=== PATIENT | male | born 1980 | race Caucasian/White ===

== ENCOUNTER 2020-09-09 16:36 | Outpatient (REF) | payer MEDICAID, SELFPAY | END 2020-09-09 16:37 | disposition home or self-care (01) | LOC: HO.LAB 16:36 | PROVIDERS: Visit Provider Internal Medicine | DX: Z20.828 Contact with and (suspected) exposure to other viral communicable diseases (principal) | CPT/HCPCS: C9803; U0003 ==

== ENCOUNTER → 2020-09-16 14:09 | Outpatient (BNVA) | payer MEDICAID, SELFPAY | PROVIDERS: Visit Provider Urology | DX: Z76.89 Persons encountering health services in other specified circumstances (principal) | CPT/HCPCS: 99212 ==

== ENCOUNTER → 2020-09-22 09:58 | Outpatient (BNVA) | payer MEDICAID, SELFPAY | PROVIDERS: Visit Provider Urology | DX: Z48.816 Encounter for surgical aftercare following surgery on the genitourinary system (principal) | CPT/HCPCS: 52000; 52310; 99212 ==

== ENCOUNTER 2025-04-24 16:22 | Outpatient (REF) | payer MEDICAID, SELFPAY ==
--- OUTSIDE RECORDS SUMMARY | 2025-04-24 16:24 | XMS_ITS | Encounter Summary ---
Author Organization [facility] Address [address] [place] [address] [address] [place] [address] Care Team Providers Care Compressed Gas Tester Name Role Phone Jahaira Bailey MD Primary Care Provide r Reason for Visit * Reason Comments Med Refill Encounter Details Date Type Department Care Team (Late st Contact Info) Description 01/20/2023 Refill [facility] [address] [place] [phone] Sammy Vyas MD [address] [place] [phone] Uncomplicated opioid dependence (CMS/[facility]) Social History Tobacco Use Types Packs/Day Years Used Date Smoking Tobacco: Every Day Cigarettes Smokeless Tobacco: Never Alcohol Use Standard Drinks/Week Comments Not Currently 0 (1 standard drink = 0.6 oz pur e alcohol) Sex and Gender Information Value Date Recorded Sex Assigned at Male 09/04/2022 10:19 AM EDT Legal Sex Male 10:19 AM EDT Gender Identity Male 09/04/2022 10:19 AM EDT Sexual Orientation Straight 09/04/2022 10 :19 AM EDT documented as of this encounter Plan of Treatment Upcoming Encounters Date Type Department Care Team (Late Contact Info) Description 04/28/2025 11:00 AM EDT Office Visit [facility] [address] [place] [address] [phone] 05/19/2025 9:30 AM EDT Clinical Support [facility] [address] [place] [phone] Enko, Dee, RN documented as of this encounter Visit Diagnoses Diagnosis Uncomplicated opioid dependence (CMS/HCC) documented in this encounter Care Teams Compressed Gas Tester Relationship Specialty Start Date End Date Jahaira Bailey MD [address] [place] [address] PCP - General Family Medicine 10/08/19 documented as of this encounter
== END 2025-04-24 16:23 | disposition home or self-care (01) ==
LOC: HO.HHCLNP 16:22
PROVIDERS: Visit Provider Family Medicine
DX: L02.211 Cutaneous abscess of abdominal wall (principal)
CPT/HCPCS: 87070; 87077; 87186; 87205

== ENCOUNTER 2025-04-28 13:04 | Outpatient (AMB) | payer MEDICAID, SELFPAY ==
--- NOTE | 2025-04-28 13:16 | MHC.OFFVIS ---
Vital Signs 04/28/25 13:20 Height 5 ft 2 in Weight 159 lb BMI 29.1 BP 125/74 Blood Pressure Location Rt brachial Position Sitting Pulse 88 Intake Visit Reasons: Abdominal wall abscess~ Dr. Shafer Intake Note: Patient referred by Dr. Shafer for infected abscess on Rt lower abdomen. Started flaring 2wks ago. Currently taking Bactrim and Augmentin. Chemical Reclamation Equipment Operator Required: Yes Accompanied by: father Karri Allergies No Known Allergies (No Known Allergies*) Allergy (Verified 04/28/25 13:17) Medication List - Last Reconciled 04/28/25 by Suresh Bowling MD acetaminophen ER 650 mg PO Q12H albuterol sulfate 90 mcg/actuation (Ventolin HFA) 2 puffs inhalation Q6H PRN albuterol sulfate 90 mcg/actuation 2 inhalations inhalation Q6H PRN amlodipine 2.5 mg PO DAILY amoxicillin-pot clavulanate 875-125 mg 1 tab PO BID buprenorphine-naloxone 2-0.5 mg (Suboxone) 2 mg sublingual DAILY buprenorphine-naloxone 8-2 mg (Suboxone) 10 mg sublingual BID ergocalciferol (vitamin D2) 1,250 mcg PO QWEEK famotidine 20 mg PO BID hydroxyzine HCl 25 mg PO BID PRN loratadine 10 mg PO DAILY phenazopyridine (Pyridium) 100 mg PO Q8H 5 days quetiapine 25 mg PO BEDTIME sulfamethoxazole-trimethoprim 800-160 mg (Bactrim DS) 1 tab PO Q12H HPI Comments Details: 44-year-old male patient presenting with a right lower quadrant abdominal wall abscess. He reports the infection beginning approximately 2 weeks ago. Wound cultures were obtained at that time and revealed MRSA. He was started on Augmentin and Bactrim but continues to have redness and swelling. He was evaluated by Dr. Shafer today and presents today for possible incision and drainage. He denies previous infections similar to this. He also denies fever or chills. [facility] Medical History Visual impairment Stage 3a chronic kidney disease Pruritus Chronic hepatitis C Generalized anxiety disorder Seasonal allergies Heartburn Moderate episode of recurrent major depressive disorder PTSD (post-traumatic stress disorder) Weight gain Elevated blood pressure reading Primary hypertension Moderate persistent asthma without complication Loud snoring Hypersomnia Illiteracy Cognitive deficits Diminished vision Drug induced constipation History of substance use disorder Atypical chest pain Insomnia Infection of skin due to methicillin resistant Staphylococcus aureus (MRSA) Asthma Family History Mother Ovarian cancer Social History Household Members: Other Housing Other:: Homeless Alcohol intake: never Patient Tobacco Use Status: Current someday Tobacco user Cigarettes Per Day: 15 Review of Systems Const All systems reviewed & are unremarkable except as noted in HPI and below Physical Exam Vital Signs: Last Vital Signs Pulse 88 04/28/25 13:20 BP 125/74 04/28/25 13:20 BMI result Body Mass Index 29.1 Const General: comfortable and no acute distress Nutritional Appearance: well nourished Orientation/consciousness: patient oriented x3 Resp Effort & Inspection: normal respiratory effort, no audible wheezes, no cough and no respiratory distress GI Other: Right lower quadrant area of cellulitis and phlegmon formation. There is some purulence discharge noted through multiple pustules consistent with MRSA skin infection. Inspection: Yes distended and Yes Abdominal panniculus present Palpation (GI): Soft to palpation and Tenderness to palpation present (GI) in the RLQ Abdomen image:  1. Site of skin infection right lower quadrant Skin Other: Abdominal wall as noted above Neuro General: patient oriented x3 Extrem General: Yes normal to inspection and Yes no clubbing, cyanosis or edema Office Procedures I&D Drain Details: Preoperative diagnosis: Abscess right lower quadrant abdomen wall Postoperative diagnosis: Same Procedure: Incision and drainage abscess abdominal wall right lower quadrant Surgeon: Suresh Bowling MD Visual Merchandising Manager: None Anesthesia: Lidocaine 1% with epinephrine Indications for procedure: Abscess right lower quadrant approximately 3 cm diameter Operative findings: Small purulence collection consistent with MRSA infection Specimen: None Estimated blood loss: 2 mL Complications: None Procedure details: Patient was placed in a supine position. After assuring the site of surgery and informed consent the skin was prepped with Betadine and draped in a sterile fashion. Local anesthesia was then infiltrated directly over the abscess. An 11 blade was then used to incise the abscess. A small purulence collection was drained. This was then irrigated with saline solution. The abscess cavity was then packed using quarter-inch Nu Gauze. Dry sterile dressings were then applied. The patient tolerated the procedure well and was discharged to home in stable condition. [id number]-[id number] of Skin Abscess, simple All charges added?: Procedure code (CPT) selection complete Assessment & Plan Assessment & Plan (1) Infection of skin due to methicillin resistant Staphylococcus aureus (MRSA): Code(s): L08.9 - Local infection of the skin and subcutaneous tissue, unspecified; B95.62 - Methicillin resistant Staphylococcus aureus infection as the cause of diseases classified elsewhere Category: Medical Plan 44-year-old male patient presenting with a MRSA infection of the skin located in the right lower quadrant abdomen. An incision and drainage was performed today and a small purulence collection drained. The wounds were then packed with quarter-inch Nu Gauze followed by dry sterile dressings. He was instructed on local wound care and will return in 1 week for wound check. He will continue the Bactrim for another week. Medications: New sulfamethoxazole-trimethoprim 800-160 mg (Bactrim DS) 1 tab PO Q12H 20 tabs 0RF B95.62 - Methicillin resistant Staphylococcus aureus infection as the cause of diseases classified elsewhere, L08.9 - Local infection of the skin and subcutaneous tissue, unspecified Coding Level of Care Code New Pt Level 4 (56770) Diagnoses Infection of skin due to methicillin resistant Staphylococcus aureus (MRSA) L08.9; B95.62 CPT Codes I&D Drain - Drain 1: 20870-Cpucitbl of Skin Abscess, simple ([id number])
[2025-04-28 13:20] VITALS: BP 125/74; PULSE 88; BMI 29.1
--- OUTSIDE RECORDS SUMMARY | 2025-04-28 14:53 | XMS_ITS | Encounter Summary ---
Author Organization [employer] Address [address] [facility] [address] [place] [address] Care Team Providers Care Coffee Roaster Name Role Phone Jahaira Bailey MD Primary Care Provide r Encounter Details Date Type Department Care Team (Latest Contact Info) Description 04/28/2025 Travel Social History Tobacco Use Types Packs/Day Years Used Date Smoking Tobacco: Every Day Cigarettes Passive Smoke Exposure: Current Smokeless Tobacco: Never Alcohol Use Standard Drinks/Week Comments Not Currently 0 (1 standard drink = 0.6 oz pur e alcohol) Depression Answer Date Recorded Patient Health Questionnaire-9 Score 6 07/08/2024 Patient Health Questionnaire-9 Score 6 07/08/2024 Last PHQ-9: Questionnaire Data Not on file 0 07/08/2024 Housing Stability Answer Date Recorded What is your housing situation today? I do not have housing (Staying with others, in a hotel, in a longterm, living outside on the street, on a beach, in a car, or in a park 03/05/[address] you li ve. Do you have problems with any of the following? I am not sure 03/05/2025 Food Insecurity Answer Date Recorded Within the past 12 months, y ou worried that your food would run out before you got money to buy more: Sometimes True 2024 Within the past 12 months,th e food you bought just didn't last and you didn't have enough money to get more: Sometimes True 03/05/2025 Transportation Answer Date Recorded In the past 12 months, has l ack of transportation kept you from medical appts, meetings, work or from getting things needed for daily living? I am not sure 03/05/2025 Utilities Answer Date Recorded In the past 12 months, has t he electric, gas, oil or water company threatened to shut off services in your home? I am not sure 03/05/2025 Depression Answer Date Recorded Patient Health Questionnaire-2 Score 1 07/08/2024 Internet Access Answer Date Recorded Internet Access Q1 I am not sure 03/05/2025 Internet Access Q2 Not on file 03/05/2025 Sex and Gender Information Value Date Recorded Sex Assigned at Male 09/04/2022 10:19 AM EDT Legal Sex Male 10:19 AM EDT Gender Identity Male 09/04/2022 10:19 AM EDT Sexual Orientation Straight 09/04/2022 10 :19 AM EDT documented as of this encounter Plan of Treatment Upcoming Encounters Date Type Department Care Team (Late st Contact Info) Description 05/19/2025 9:30 AM EDT Clinical Support [facility] [address] [place] [address] Dee Borden RN documented as of this encounter Visit Diagnoses Not on filedocumented in this encounter Additional Health Concerns Assessment Noted Time PHQ-9 Depression Total Score: 6 07/08/20 24 2:41 PM EDT documented as of this encounter Care Teams Coffee Roaster Relationship Specialty Start Date End Date Jahaira Bailey MD [address] [place] [address] PCP - General Family Medicine 10/08/19 documented as of this encounter
== END 2025-04-28 13:40 | disposition home or self-care (01) ==
LOC: HO.HGS 13:05
PROVIDERS: PCP Internal Medicine; Visit Provider Surgery
DX: L08.9 Local infection of the skin and subcutaneous tissue, unspecified (principal); B95.62 Methicillin resistant Staphylococcus aureus infection as the cause of diseases classified elsewhere
CPT/HCPCS: 10060; 99204

== ENCOUNTER → 2025-04-28 13:04 | Outpatient (BNVA) | payer MEDICAID, SELFPAY | PROVIDERS: PCP Internal Medicine; Visit Provider Surgery | DX: B95.62 Methicillin resistant Staphylococcus aureus infection as the cause of diseases classified elsewhere (principal); L08.9 Local infection of the skin and subcutaneous tissue, unspecified | CPT/HCPCS: 10060; 99202 ==

== ENCOUNTER 2025-05-05 12:49 | Outpatient (AMB) | payer MEDICAID, SELFPAY ==
--- NOTE | 2025-05-05 12:52 | MHC.OFFVIS ---
Vital Signs 05/05/25 12:57 Height 5 ft 2 in Weight 161 lb BMI 29.4 BP 137/68 Blood Pressure Location Rt brachial Position Sitting Pulse 94 Intake Visit Reasons: Abscess Rt lower abdomen Intake Note: Patient here for 1week follow up MRSA infection on right lower quadrant abdomen. Patient c/o: reports improvement with Bactrim course. Denies oozing, pain. Transfer Clerk Required: No Accompanied by: Self / Same As Patient Allergies No Known Allergies (No Known Allergies*) Allergy (Verified 05/05/25 12:56) HPI HPI Abscess Rt lower abdomen: Details: In-house service center manager used for this evaluation. Patient returning for wound care follow-up after I and D of right lower quadrant abdominal abscess one-week ago in the office. Patient states that the packing came out later that day. It continued to drain for a couple of days but has since closed. It is no longer causing him pain in his no longer draining. He denies fevers or chills at home. Otherwise feels good. States he has 2 days left of antibiotics [facility] Medical History Visual impairment Stage 3a chronic kidney disease Pruritus Chronic hepatitis C Generalized anxiety disorder Seasonal allergies Heartburn Moderate episode of recurrent major depressive disorder PTSD (post-traumatic stress disorder) Weight gain Elevated blood pressure reading Primary hypertension Moderate persistent asthma without complication Loud snoring Hypersomnia Illiteracy Cognitive deficits Diminished vision Drug induced constipation History of substance use disorder Atypical chest pain Insomnia Infection of skin due to methicillin resistant Staphylococcus aureus (MRSA) Asthma Family History Mother Ovarian cancer Social History Household Members: Other Housing Other:: Homeless Alcohol intake: never Patient Tobacco Use Status: Current someday Tobacco user Cigarettes Per Day: 15 Review of Systems Const All systems reviewed & are unremarkable except as noted in HPI and below Physical Exam Vital Signs: Last Vital Signs Pulse 94 05/05/25 12:57 BP 137/68 05/05/25 12:57 BMI result Body Mass Index 29.4 Const General: comfortable and no acute distress Orientation/consciousness: patient oriented x3 Resp Effort & Inspection: normal respiratory effort and able to speak in complete sentences GI Other: Right lower quadrant: I&D site appears to be healing well. It is firm, there was no palpable fluid collection it was nontender. It does not appear edematous or acutely infected Neuro General: patient oriented x3 Assessment & Plan Assessment & Plan (1) Infection of skin due to methicillin resistant Staphylococcus aureus (MRSA): Code(s): L08.9 - Local infection of the skin and subcutaneous tissue, unspecified; B95.62 - Methicillin resistant Staphylococcus aureus infection as the cause of diseases classified elsewhere Category: Medical Plan 44-year-old male presenting to the office for follow-up after I and D of an abdominal right lower quadrant superficial infection of the skin in the office last week. Culture from the ED showed positive for MRSA. Patient was put on Bactrim for 10 days. He has 2 days of antibiotics left. I stressed the importance of completing the entirety of this prescription. Overall the patient is doing well, his pain is improved the wound is no longer draining and is nontender to the touch. On exam the area does feel firm, there was no additional fluid collection appreciated. The wound appears to be healing well. The patient will return in 2 weeks for follow-up. He is to complete the rest of his antibiotic course. We discussed return precautions, including recurrent drainage, tenderness fevers. Patient agrees to this plan will follow up in 2 weeks, can follow-up with any concerns prior Coding Level of Care Code Est Pt Level 3 (23054) Diagnoses Infection of skin due to methicillin resistant Staphylococcus aureus (MRSA) L08.9; B95.62
[2025-05-05 12:57] VITALS: BP 137/68; PULSE 94; BMI 29.4
--- OUTSIDE RECORDS SUMMARY | 2025-05-05 13:41 | XMS_ITS | Encounter Summary ---
Author Organization [email or web address] [facility] Address [address] [place] [address] [address] [place] [address] Care Team Providers Care Set Up Mechanic Heading Machines Name Role Phone Jahaira Bailey MD Primary Care Provide r Reason for Visit * Reason Comments Med Refill Encounter Details Date Type Department Care Team (Late Contact Info) Description 01/20/2023 Refill [facility] [address] [place] [phone] Sammy Vyas MD [address] [place] [phone] Uncomplicated opioid dependence (CMS/HCC) Social History Tobacco Use Types Packs/Day Years [...] Department Care Team (Late Contact Info) Description 05/19/2025 9:30 AM EDT Clinical Support [facility] [address] [place] [phone] Dee Borden RN documented as of this encounter Visit Diagnoses Diagnosis Uncomplicated opioid dependence (CMS/HCC) documented in this encounter Care Teams Set Up Mechanic Heading Machines Relationship Specialty Start Date End Date Jahaira Bailey MD [address] [place] [address] PCP - General Family Medicine 10/08/19 documented as of this encounter
== END 2025-05-05 13:02 | disposition home or self-care (01) ==
LOC: HO.HGS 12:49
PROVIDERS: PCP Internal Medicine
DX: L08.9 Local infection of the skin and subcutaneous tissue, unspecified (principal); B95.62 Methicillin resistant Staphylococcus aureus infection as the cause of diseases classified elsewhere
CPT/HCPCS: 99024

== ENCOUNTER → 2025-05-05 12:49 | Outpatient (BNVA) | payer MEDICAID, SELFPAY | PROVIDERS: PCP Internal Medicine | DX: R10.11 Right upper quadrant pain (principal); L08.9 Local infection of the skin and subcutaneous tissue, unspecified; B95.62 Methicillin resistant Staphylococcus aureus infection as the cause of diseases classified elsewhere | CPT/HCPCS: 99212 ==

== ENCOUNTER 2025-05-19 13:26 | Outpatient (AMB) | payer MEDICAID, SELFPAY ==
--- NOTE | 2025-05-19 13:31 | A.OFFVIS_ITS ---
Vital Signs 05/19/25 13:38 Height 5 ft 2 in Weight 162 lb BMI 29.6 BP 106/72 Blood Pressure Location Lt brachial Position Sitting Pulse 82 Intake Visit Reasons: 2wk Abscess Rt lower abd Intake Note: Pt states, Everything is fine. It's all better. no pain, no drainage, no swelling. antibiotics are complete Crop Farm Workers Required: Yes Crop Farm Workers Name: VALENTIN Bullock Allergies No Known Allergies (No Known Allergies*) Allergy (Verified 05/19/25 13:34) Medication List - Last Reconciled 05/19/25 by Ryan Cleary RN albuterol sulfate 90 mcg/actuation (Ventolin HFA) 2 puffs inhalation Q6H PRN albuterol sulfate 90 mcg/actuation 2 inhalations inhalation Q6H PRN amlodipine 2.5 mg PO DAILY buprenorphine-naloxone 2-0.5 mg (Suboxone) 2 mg sublingual DAILY buprenorphine-naloxone 8-2 mg (Suboxone) 10 mg sublingual BID hydroxyzine HCl 25 mg PO BID PRN loratadine 10 mg PO DAILY phenazopyridine (Pyridium) 100 mg PO Q8H 5 days quetiapine 25 mg PO BEDTIME HPI HPI 2wk Abscess Rt lower abd: Details: Patient reports he is doing well. Denies pain at the site of I and D. Denies any further discharge. Denies fever, chills. Denies nausea, vomiting, diarrhea, constipation. Reports he completed the antibiotic course as prescribed [facility] Medical History Visual impairment Stage 3a chronic kidney disease Pruritus Chronic hepatitis C Generalized anxiety disorder Seasonal allergies Heartburn Moderate episode of recurrent major depressive disorder PTSD (post-traumatic stress disorder) Weight gain Elevated blood pressure reading Primary hypertension Moderate persistent asthma without complication Loud snoring Hypersomnia Illiteracy Cognitive deficits Diminished vision Drug induced constipation History of substance use disorder Atypical chest pain Insomnia Infection of skin due to methicillin resistant Staphylococcus aureus (MRSA) Asthma Family History Mother Ovarian cancer Social History Household Members: Other Housing Other:: Homeless Alcohol intake: never Patient Tobacco Use Status: Current someday Tobacco user Cigarettes Per Day: 15 Review of Systems Const All systems reviewed & are unremarkable except as noted in HPI and below Physical Exam Vital Signs: Last Vital Signs Pulse 82 05/19/25 13:38 BP 106/72 05/19/25 13:38 BMI result Body Mass Index 29.6 Const General: comfortable and no acute distress Orientation/consciousness: patient oriented x3 GI Other: Right lower quadrant I&D site: Nontender, very mild induration. No palpable fluid collection. No warmth. No open wound Inspection: No distended Palpation (GI): Soft to palpation, nontender, no guarding and not rigid Neuro General: patient oriented x3 Assessment & Plan Assessment & Plan (1) Infection of skin due to methicillin resistant Staphylococcus aureus (MRSA): Code(s): L08.9 - Local infection of the skin and subcutaneous tissue, unspecified; B95.62 - Methicillin resistant Staphylococcus aureus infection as the cause of diseases classified elsewhere Category: Medical Plan 44-year-old male status post I&D of right lower quadrant abdominal wall abscess returning for evaluation of the wound. The patient is doing well, states the wound is healing and is not causing him any pain. He denies any discharge from the area. Denies fever, chills. He did complete the full course of antibiotics. His appetite and bowel function are at baseline. On exam there was a small area of induration underneath the incision and drainage site, this appears improved from last visit. There was no open wound visible. I was unable to appreciate any palpable fluid collection. The area was nontender. I recommended that he could use warm compress and gentle massage on the area to help with the induration. Patient no longer requiring follow up, he can follow up as needed with any future concerns Coding Level of Care Code Est Pt Level 2 (46978) Diagnoses Infection of skin due to methicillin resistant Staphylococcus aureus (MRSA) L08.9; B95.62
[2025-05-19 13:38] VITALS: BP 106/72; PULSE 82; BMI 29.6
--- OUTSIDE RECORDS SUMMARY | 2025-05-19 14:47 | XMS_ITS | Encounter Summary ---
Author Organization [employer] [facility] Address [address] [place] [address] [address] [place] [address] Care Team Providers Care Sewing Machines Salesperson Name Role Phone Jahaira Bailey MD Primary Care Provide r Reason for Visit * Reason Comments Med Refill Encounter Details Date Type Department Care Team (Late Contact Info) Description 01/20/2023 Refill [facility] [address] [place] [phone] Sammy Vyas MD [address] [place] [phone] Uncomplicated opioid dependence ([facility]/HCC) Social History Tobacco Use Types Packs/Day Years [...] Department Care Team (Late Contact Info) Description 08/11/2025 9:00 AM EDT Office Visit [facility] [address] [place] [address] Sammy Vyas MD [address] [place] [phone] documented as of this encounter Visit Diagnoses Diagnosis Uncomplicated opioid dependence (CMS/HCC) documented in this encounter Care Teams Sewing Machines Salesperson Relationship Specialty Start Date End Date Jahaira Bailey MD [address] [place] [address] PCP - General Family Medicine 10/08/19 documented as of this encounter
== END 2025-05-19 14:00 | disposition home or self-care (01) ==
LOC: HO.HGS 13:26
PROVIDERS: PCP Internal Medicine
DX: L08.9 Local infection of the skin and subcutaneous tissue, unspecified (principal); B95.62 Methicillin resistant Staphylococcus aureus infection as the cause of diseases classified elsewhere
CPT/HCPCS: 99212

== ENCOUNTER → 2025-05-19 13:26 | Outpatient (BNVA) | payer MEDICAID, SELFPAY | PROVIDERS: PCP Internal Medicine | DX: L08.9 Local infection of the skin and subcutaneous tissue, unspecified (principal); B95.62 Methicillin resistant Staphylococcus aureus infection as the cause of diseases classified elsewhere | CPT/HCPCS: 99212 ==

== ENCOUNTER 2025-07-14 13:28 | Outpatient (REF) | payer MEDICAID, SELFPAY ==
--- OUTSIDE RECORDS SUMMARY | 2025-07-14 16:01 | XMS_ITS | Clinical Summary ---
Author Organization [employer] Address [address] [facility] [address] [place] [address] Care Team Providers Care District Sales Representative Name Role Phone Jahaira Bailey MD Primary Care Provide r Allergies No known active allergies Medications * This document contains information received from the source organization and may not represent a complete record from that organization. carboxymethylcel lulose 1 % ophthalmic solution Administer 1 drop into both eyes every 8 (eight) hours if needed. 2 Active diphenhydrAMINE (BENADryl) 2 % cream apply daily as needed 1 Active diphenhydrAMINE (BENADryl) 25 MG capsule Take 2 capsules by mouth every 4 (four) hours. 1 Active ergocalciferol (Vitamin D-2) 1.25 MG (99773 UT) capsule Take 1 capsule by mouth once a week. 1 Active hydrOXYzine HCl (Atarax) 25 MG tablet Take 1 tablet by mouth every 8 (eight) hours. 1 Active naloxone (Narcan) 4 mg/0.1 mL nasal spray Administer 0.1 mL into affected nostril(s). 0 Active triamcinolone (Kenalog) 0.1 % cream Apply topically every 12 (twelve) hours. 1 Active albuterol 108 (90 Base) MCG/ACT inhalerIndicatio ns:Mild persistent asthma without complication Inhale 2 puffs every 6 (six) hours if needed for wheezing. 18 g 1 3 Active prazosin (Minipress) 1 MG capsuleIndicatio ns:Nightmares TAKE 1 CAPSULE BY MOUTH AT BEDTIME FOR 7 DAYS THEN TAKE 2 CAPSULES BY MOUTH EVERY DAY AT BEDTIME 60 capsule 2 3 Active famotidine (Pepcid) 20 MG tabletIndication s:Heartburn Take 1 tablet (20 mg) by mouth 2 times daily. 60 tablet 11 3 Active loratadine (Claritin) 10 MG tabletIndication s:Seasonal allergies Take 1 tablet (10 mg) by mouth in the morning. 30 tablet 3 Active Blood Pressure Monitoring (Blood Pressure Cuff) miscIndications: Elevated blood pressure reading 1 each Once daily. 1 each 3 Active albuterol (2.5 MG/3ML) 0.083% nebulizer solutionIndicati ons:Moderate persistent asthma without complication Take 3 mL (2.5 mg) by nebulization every 4 (four) hours if needed for wheezing. 75 mL 3 4 Active fluticasone furoate (Arnuity Ellipta) 200 MCG/ACT inhalerIndicatio ns:Moderate persistent asthma without complication Inhale 1 puff Once per day. 1 each 5 4 Active nicotine polacrilex (Nicorelief) 2 MG gumIndications:T obacco use disorder Chew 1-2 pieces every 1-2 hours instead of a cigarette. 120 each 3 4 Active amLODIPine (Norvasc) 2.5 MG tabletIndication s:Primary hypertension TAKE 1 TABLET BY MOUTH EVERY DAY IN THE MORNING 90 tablet 1 5 Active QUEtiapine (SEROquel) 25 MG tabletIndication s:PTSD (post-traumatic stress disorder),Genera lized anxiety disorder,Insomni a, unspecified type Take 1 tablet (25 mg) by mouth at bedtime. 30 tablet 5 Active Ventolin HFA 108 (90 Base) MCG/ACT inhalerIndicatio ns:Mild persistent asthma without complication INHALE 2 PUFFS BY MOUTH EVERY 4 HOURS NEEDED FOR WHEEZING OR SHORTNESS OF BREATH 18 g 1 5 Active nicotine (Nicoderm CQ) 21 MG/24HR patch Place 1 patch on the skin 1 (one) time each day at the same time. 56 patch 5 Active nicotine polacrilex (Nicorette) 2 MG lozenge 1 or 2 lozenges q 1-2 hours instead of a cigarette 100 lozenge 2 5 Active ibuprofen 600 MG tablet Take 1 tablet (600 mg) by mouth every 6 (six) hours if needed for mild pain. 40 tablet 1 5 026 Active buprenorphine-na loxone (Suboxone) 2-0.5 MG per sublingual filmIndications: Uncomplicated opioid dependence (CMS/HCC) Place 1 Film under the tongue Once per day. 28 Film 2 5 025 Active Buprenorphine HCl-Naloxone HCl (Suboxone) 8-2 MG SL filmIndications: Uncomplicated opioid dependence (CMS/HCC) Place 1 Film under the tongue 2 times daily. 56 Film 2 5 025 Active varenicline (Chantix) 0.5 MG tabletIndication s:Tobacco use disorder 1 pill PO daily x 3 days, then increase to 1 pill PO BID x 4 days. Take with full glass of water. 11 tablet 5 Active varenicline (Chantix) 1 MG tabletIndication s:Tobacco use disorder Take 1 tablet (1 mg) by mouth 2 times daily. Take with full glass of water. Start after 0.5 mg tablets. 60 tablet 1 5 025 Active Active Problems Problem Noted Date Diagnosed Date Witnessed episode of apnea 03/05/2025 Insomnia 03/05/2025 Assessment & Plan (03/05/2025 2:31 PM EDT): Sleep hygiene counseling done I decided to start him on quetiapine 25 mg at bedtime Atypical chest pain 03/05/2025 Assessment & Plan (03/05/2025 2:32 PM EDT): I refer patient to cardiology History of substance use disorder 06/17/2024 Drug-induced constipation 04/08/2024 Diminished vision 04/08/2024 Cognitive deficits 04/08/2024 Illiteracy 04/08/2024 Hypersomnia 01/09/2024 Loud snoring 01/09/2024 Assessment & Plan (03/05/2025 2:31 PM EDT): I will repeat home sleep studies Moderate persistent asthma without complication 01/09/2024 Assessment & Plan (01/10/2024 9:29 AM EST): Patient educated to avoid asthma triggers I will increase his asmanex to 200mcg pump I will prescribe for patient nebulizer Primary hypertension 01/09/2024 Assessment & Plan (03/05/2025 2:31 PM EDT): Today blood pressure was elevated second reading was better though I advised to continue with low-sodium diet and continue with medications I advised to log his blood pressure at home and bring back log in 4 weeks for all follow-up appointment Assessment & Plan (04/08/2024 12:16 PM EDT): - Aerobic exercise to reduce BP. Initial goal of 30 min walk 3-5x/week. Increase as tolerated. - low-sodium diet (goal: <2g/day) and heart healthy diet such as DASH to reduce BP and prevent ASCVD. - Home BP monitoring 1-2 x day with goal of <140/90. - Seek immediate medical attention for chest pain, palpitations, SOB, syncope, or sudden changes in mental status. - Do not change or discontinue current prescriptions without first consulting health care provider Assessment & Plan (01/10/2024 9:28 AM EST): Maintenance: BMP: up to date Lipid Panel: up to date ASCVD Risk: low risk 3.2% -I will start patient on amlodipine 2.5mg daily - Aerobic exercise to reduce BP. Initial goal of 30 min walk 3-5x/week. Increase as tolerated. - low-sodium diet (goal: <2g/day) and heart healthy diet such as DASH to reduce BP and prevent ASCVD. - Home BP monitoring 1-2 x day with goal of <140/90. - Seek immediate medical attention for chest pain, palpitations, SOB, syncope, or sudden changes in mental status. - Do not change or discontinue current prescriptions without first consulting health care provider Elevated blood pressure reading 11/02/2023 Assessment & Plan (11/02/2023 3:12 PM EST): Blood pressure cuff prescribed RTC in 2 weeks with nurse for BP check if BP not at goal <140/90mmhg plan is to initiate amlodipine 5mg daily Weight gain 11/02/2023 Assessment & Plan (11/02/2023 3:14 PM EST): Labs will be check I advise patient to avoid NSAIDs, spicy and acid food, I advise to eat at the same time every day, I advise to elevate the head of the bed and take medications as prescribe PTSD (post-traumatic stress disorder) 11/02/2023 Assessment & Plan (11/02/2023 3:14 PM EST): Patient will call to set up appointment with psychiatrist I will re-initiate prazosin in the mean time Moderate episode of recurrent major depressive d isorder 11/02/2023 Heartburn 11/02/2023 Assessment & Plan (11/02/2023 3:13 PM EST): I advise patient to avoid NSAIDs, spicy and acid food, I advise to eat at the same time every day, I advise to elevate the head of the bed and take medications as prescribe Famotidine 20mg BID Seasonal allergies 11/02/2023 Generalized anxiety disorder 10/03/2022 Assessment & Plan (03/05/2025 2:32 PM EDT): Patient reports he does have a counselor and I decided to start quetiapine 25 mg at bedtime I will follow-up with him in 4 weeks Chronic hepatitis C 10/03/2022 Assessment & Plan (03/05/2025 2:32 PM EDT): Undetectable Pruritus 10/03/2022 Stage 3a chronic kidney disease (CKD) 10/03/2022 Assessment & Plan (11/02/2023 3:13 PM EST): BMP will be check with labs avoid NSAIDS Drink plenty of water Visual impairment 10/03/2022 Resolved Problems Problem Noted Date Diagnosed Date Resolved Date Anxiety 07/08/2024 07/08/2024 Mild intermittent asthma without complication 11/02/20 23 01/09/2024 Encounters * This document contains information received from the source organization and may not represent a complete record from that organization. Date Type Department Care Team Description 05/19/2025 9:00 AM EDT Office Visit [facility] [address] [place] [phone] Samym Vyas MD Opioid dependence in remission ([facility]) (Primary Dx); Tobacco use disorder 05/19/2025 Patient Outreach [facility] [address] [place] [phone] Preston Luna Recovery Supports 05/19/2025 Travel 05/13/2025 Refill [facility] [address] [place] [phone] Dee Borden RN Uncomplicated opioid dependence ([facility]/HCC) 05/13/2025 Refill [facility] [address] [place] [phone] Dee Borden RN 04/28/2025 11:00 AM EDT Office Visit [facility] [address] [place] [phone] Patel Shafer MD Abscess of skin of abdomen (Primary Dx); Primary hypertension 04/28/2025 Travel 04/24/2025 3:00 PM EDT Office Visit [facility] [address] [place] [phone] Maria Luz Penn DO Abscess of abdominal wall (Primary Dx); Cellulitis of abdominal wall 04/24/2025 Telephone [facility] [address] [place] [phone] Jahaira Bailey MD Referral from Last 3 Months Immunizations Immunization Administration Dates Next Due Hep A, Adult 02/28/2022,07/05/2021 Influenza injectable quadriv alent IIV4 with preservative 10/08/2019 Influenza injectable quadriv alent preservative free 11/02/2023,12/11/2022,12/20/2021,2019 Influenza, IIV3, injectable 12/20/2021 Moderna Covid-19 Vaccine 12+ 11/16/2021,03/21/20 21,02/17/2021 Pfizer Covid-19 Vaccine 12+ 03/24/2025, Pfizer Covid-19 Vaccine 12+ Bivalent 12/11/2022 Pneumococcal Conjugate PCV 20 04/08/2024 Social History Tobacco Use Types Packs/Day Years Used Date Smoking Tobacco: Every Day Cigarettes Passive Smoke Exposure: Current Smokeless Tobacco: Never Tobacco Cessation:Ready to Q uit: Not Asked; Counseling Given: Not Answered Alcohol Use Standard Drinks/Week Comments Not Currently [...] with others, in a hotel, in a custodial, living outside on the street, on a [...] Orientation Straight 09/04/2022 10 :19 AM EDT Last Filed Vital Signs Vital Sign Reading Time Taken Comments Blood Pressure 148/84 04/28/2025 10:57 AM EDT Pulse 95 04/28/2025 10:57 AM EDT Temperature 36.4 C (97.6 F) 04/28/2025 10:57 AM EDT Respiratory Rate 18 04/28/2025 10:57 AM EDT Oxygen Saturation 95% 04/28/2025 10:57 AM EDT Inhaled Oxygen Concentration - - Weight 75.3 kg (166 lb) 04/24/2025 2:43 PM EDT Height 157.5 cm (5' 2 ) 04/24/2025 2:43 PM EDT Body Mass Index 30.36 04/24/2025 2:43 PM EDT Plan of Treatment Upcoming Encounters Date Type Department Care Team (Late st Contact Info) Description 08/11/2025 9:00 AM EDT Office Visit [facility] [address] [place] [phone] Sammy Vyas MD [address] [place] [address] Health Maintenance Due Date Last Done Comments CT Colonography 1979 Colonoscopy 1979 FIT 1979 Sigmoidoscopy 1979 Alcohol/Substance Use Screening 1991 Family Planning (PISQ) 1994 DTaP/Tdap/Td Vaccines (1 - Tdap) 1998 Hepatitis B Vaccines (1 of 3 - 19+ 3-dose series) 1998 Influenza Vaccine (#1) 2025 , 12/11/2022, 12/20/2021, Additional history exists Depression Screening 07/08/2025 07/08/2024, 07/08/20 24 Disability Screening 03/05/2026 03/05/2025 SDOH Screening 03/05/2026 03/05/2025 FOBT 04/09/2026 04/09/2025 Tobacco Screening 04/28/2026 04/28/2025 Colorectal Cancer Screening 04/09/2028 FIT DNA/Cologuard 04/09/2028 04/09/2025 Lipid Panel 11/02/2028 11/02/2023, 12/29/2020 Zoster Vaccines (1 of 2) 2029 RSV Patients and Patients Aged 60 years or older (1 - 1-dose 75+ series) 2054 Hepatitis A Vaccines Completed 02/28/2022, 07/05/20 21 Pneumococcal Vaccine: Pediatrics (0 to 5 Years) and At-Risk Patients (6 to 49) Years Completed 04/08/2024 HIV Screening Completed 12/02/2024, 03/06, 02/28/2022, Additional history exists COVID-19 Vaccine Completed 03/24/2025, 12/2023, 12/11/2022, Additional history exists HIB Vaccines Aged Out No longer eligi ble based on patient's age to complete this topic HPV Vaccines Aged Out No longer eligi ble based on patient's age to complete this topic IPV Vaccines Aged Out No longer eligi ble based on patient's age to complete this topic Meningococcal B Vaccine Aged Out No l onger eligible based on patient's age to complete this topic Meningococcal Vaccine Aged Out No jea nclaude elan eligible based on patient's age to complete this topic RSV under 20 months Aged Out No longe r eligible based on patient's age to complete this topic Rotavirus Vaccines Aged Out No longer eligible based on patient's age to complete this topic Procedures Procedure Name Priority Date/Time Associated Diagnosis Comments WOUND CULTURE Routine 04/24/2025 3:14 PM EDT GRAM STAIN Routine 04/24/2025 3:14 PM EDT LAB COLOGUARD COLON CANCER SCREEN Routine 04/09/2025 10:15 AM EDT Screening for colon cancer HIV 1/2 ANTIGEN/ANTIBODY, FOURTH GENERATION W/RFL Routine 12/02/2024 10:52 AM EST Uncomplicated opioid dependence (CMS/HCC) LIPID PANEL, STANDARD Routine 11/02/2023 3:22 PM EST Weight gain from Last 3 Months or Most Recently Relevant to Health Maintenance Results * Gram stain (04/24/2025 3:14 PM EDT) 04/24/2025 3:14 PM EDT 04/24/2025 4:23 PM EDT Comment:Abdomen Narrative [facility] - 04/27/2025 8:11 AM EDT ABSCESS OF ABDOMINAL WALL Gram stain results: 1+ polys 1+ epithelial cells 3+ red blood cells 1+ Gram-positive cocci ABSCESS OF ABDOMINAL WALL Methicillin Res Staph Aureus Quant Org ID [id number] Methicillin Res Staph Aureus: Clindamycin <=0.25(S) Methicillin Res Staph Aureus: Erythromycin >=8(R) Methicillin Res Staph Aureus: Oxacillin >=4(R) Methicillin Res Staph Aureus: Penicillin-G >=0.5(R) Methicillin Res Staph Aureus: Tetracycline <=1(S) Methicillin Res Staph Aureus: Trimethoprim/Sulfamethoxazole <=10(S) Methicillin Res Staph Aureus: Vancomycin 1(S) Specimen Source: Abdomen Maria Luz Penn DO LAB MICROBIOLOGY - GENERAL O RDERABLES Final Result [facility] [address] [place] [phone] * Cologuard?? colon cancer screening (04/09/2025 10:15 AM EDT) Cologuard Result Negative Negative 04/14/20 12:43 PM EDT [employer] (CLIA #:[id number]) Comment: The Cologuard (TM) test was performed on this specimen. NEGATIVE TEST RESULT. A negative Cologuard result indicates a low likelihood that a colorectal cancer (CRC) or advanced adenoma (adenomatous polyps with more advanced pre-malignant features) is present. The chance that a person with a negative Cologuard test has a colorectal cancer is less than 1 in 1500 (negative predictive value >99.9%) or has an advanced adenoma is less than 5.3% (negative predictive value 94.7%). These data are based on a prospective cross-sectional study of 10,000 individuals at average risk for colorectal cancer who were screened with both Cologuard and colonoscopy. (Laisha Gomez al, N Engl J Med 2014;370(14):1286- 1297) The normal value (reference range) for this assay is negative. COLOGUARD RE-SCREENING RECOMMENDATION: Periodic colorectal cancer screening is an important part of preventive healthcare for asymptomatic individuals at average risk for colorectal cancer. Following a negative Cologuard result, the [place] [employer] Society and U.S. Multi-Society Task Force screening guidelines recommend a Cologuard re-screening interval of 3 years. References: [place] [employer] Guideline for Colorectal Cancer Screening: https://www.cancer.org/cancer/xkryk-ukiuaz-ulzjtd/ufpdcawiu-lzkajetcy-bbkswgg/ac s-rec ommendations.html.; Reid EPPERSON, Rosalva DUARTE, Rita FloresK, Colorectal Cancer Screening: Recommendations for Physicians and Patients from the U.S. Multi-Society Task Force on Colorectal Cancer Screening , Am J Gastroenterology 2017; 112:6150-7349. TEST DESCRIPTION: Composite algorithmic analysis of stool DNA-biomarkers with hemoglobin immunoassay. Quantitative values of individual biomarkers are not reportable and are not associated with individual biomarker result reference ranges. Cologuard is intended for colorectal cancer screening of adults of either sex, 45 years or older, who are at average-risk for colorectal cancer (CRC). Cologuard has been approved for use by the U.S. FDA. The performance of Cologuard was established in a cross sectional study of average-risk adults aged 50-84. Cologuard performance in patients ages 45 to 49 years was estimated by sub-group analysis of near-age groups. Colonoscopies performed for a positive result may find as the most clinically significant lesion: colorectal cancer [4.0%], advanced adenoma (including sessile serrated polyps greater than or equal to 1cm diameter) [20%] or non- advanced adenoma [31%]; or no colorectal neoplasia [45%]. These estimates are derived from a prospective cross-sectional screening study of 10,000 individuals at average risk for colorectal cancer who were screened with both Cologuard and colonoscopy. (Laisha Joseph, N Engl J Med 2014;370(14):1985-4689.) Cologuard may produce a false negative or false positive result (no colorectal cancer or precancerous polyp present at colonoscopy follow up). A negative Cologuard test result does not guarantee the absence of CRC or advanced adenoma (pre-cancer). The current Cologuard screening interval is every 3 years. ([place] [employer] Society and U.S. Multi-Society Task Force). Cologuard performance data in a 10,000 patient pivotal study using colonoscopy as the reference method can be accessed at the following location: www.Vupen/results. Additional description of the Cologuard test process, warnings and precautions can be found at www.Phorestrd.com. Stool specimen (specimen) 04/09/2025 10:15 AM EDT 04/10/2025 12:59 PM EDT us Jahaira Bui MD LAB MOLECULAR DIAGNOS TICS ORDERABLES Final Result [facility] [employer] (CLIA #:[id number]) [address] [place] [address], * HIV-1/2 Antigen and Antibodies, Fourth Generation, with Reflexes (12/02/2024 10:52 AM EST) Pathologist [facility] HIV AB/AG Nonreactive Nonreactive [facility] Comment:HIV-1 p24 Ag and/or HIV-1/HIV-2 Ab not detected.A test result that is nonreactive does not exclude thepossibility of exposure to or infection with HIV-1 and/orHIV-2. Nonreactive results in this assay for individualswith prior exposure to HIV-1 and/or HIV-2 may be due toantigen and antibody levels that are below the limit ofdetection of this assay.The [employer] HIV Ag/Ab Combo assay result andsupplemental assay results should be interpreted inconjunction with the patient's clinical presentation,history and other laboratory results. If the results areinconsistent with clinical evidence, additional testing issuggested to confirm the result. Blood Venous blood specimen / Unknown 12/02/2024 10:52 AM EST 12/02/2024 1:22 PM EST us Sammy Vyas MD LAB BLOOD ORDERABLES Final Res ult [facility] [address] [place] [phone] * (ABNORMAL) Lipid Panel, Standard (11/02/2023 3:22 PM EST) Triglycerides 199(H) <150 mg/dL [facility] Comment:Desirable Triglyceri de: less than 150 mg/dLBorderline High Triglyceride 150-199 mg/dLHigh Triglyceride: 200-499 mg/dLVery High Triglyceride: greater than or equal to 5OO mg/dL Cholesterol 207(H) <200 mg/dL [facility] Comment:Desirable Cholestero l: less than 200 mg/dLBorderline High Cholesterol: 200-239 mg/dLHigh Cholesterol: greater than 239 mg/dL LDL Cholesterol Calculated 128(H) <100 mg/dL [facility] Comment:Desirable LDL: less than 100 mg/dLNear Optimal/Above Optimal LDL: 110- 129 mg/dLBorderline High LDL: 130-159 mg/dLHigh LDL: 160-189 mg/dLVery High LDL: greater than or equal to 190 mg/dL HDL Cholesterol 40(L) >40 mg/dL [facility] Comment:Desirable HDL: great er than 40 mg/dL Note: This HDL assay may give artificially low results in patients with liver disease. Blood Venous blood specimen / Unknown 11/02/2023 3:22 PM EST 11/02/2023 4:00 PM EST us Jahaira Bui MD LAB BLOOD ORDERABLES Final Result [facility] [address] [place] [phone] from Last 3 Months or Most Recently Relevant to Health Maintenance Insurance [employer] [facility] [facility] STANDARD Care Teams District Sales Representative Relationship Specialty Start Date End Date Jahaira Bailey MD [address] [place] [phone] PCP - General Family Medicine 10/08/19
--- OUTSIDE RECORDS SUMMARY | 2025-07-14 16:01 | XMS_ITS | Encounter Summary ---
Author Organization [id number] Address [address] [facility] [address] [place] [address] Care Team Providers Care Chief Creative Officer Name Role Phone Jahaira Bailey MD Primary Care Provide r Reason for Visit * Reason Comments Med Refill Encounter Details Date Type Department Care Team ([facility] st Contact Info) Description 01/20/2025 Refill [facility] [address] [place] [address] Sammy Vyas MD [address] [place] [address] Uncomplicated opioid dependence (CMS/HCC) Social History Tobacco [...] with others, in a hotel, in a halfway, living outside on the street, on a beach, in a car, or in a park 01/02/[address] you li ve. Do you have problems with any of the following? None of the above 01/02/2024 Food Insecurity Answer Date Recorded Within the past 12 months, y ou worried that your food would run out before you got money to buy more: Often true 01/02/2024 Within the past 12 months,th e food you bought just didn't last and you didn't have enough money to get more: Often true Transportation Answer Date Recorded In the past 12 months, has l ack of transportation kept you from medical appts, meetings, work or from getting things needed for daily living? No 11/02/2023 Utilities Answer Date Recorded In the past 12 months, has t he electric, gas, oil or water company threatened to shut off services in your home? No 11/02/2023 Depression Answer Date Recorded Patient Health Questionnaire-2 Score 1 07/08/2024 Sex and Gender Information Value Date Recorded Sex Assigned at Male 09/04/2022 10:19 AM EDT Legal Sex Male 10:19 AM EDT Gender Identity Male 09/04/2022 10:19 AM EDT Sexual Orientation Straight 09/04/2022 10 :19 AM EDT documented as of this encounter Plan of Treatment Upcoming Encounters Date Type Department Care Team (Late st Contact Info) Description 08/11/2025 9:00 AM EDT Office Visit [facility] [address] [place] [phone] Sammy Vyas MD [address] [place] [address] documented as of this encounter Visit Diagnoses Diagnosis Uncomplicated opioid dependence (CMS/HCC) documented in this encounter Additional Health Concerns Assessment Noted Time PHQ-9 Depression Total Score: 6 07/08/20 24 2:41 PM EDT documented as of this encounter Care Teams Chief Creative Officer Relationship Specialty Start Date End Date Jahaira Bailey MD [address] [place] [phone] PCP - General Family Medicine 10/08/19 documented as of this encounter
--- OUTSIDE RECORDS SUMMARY | 2025-07-14 16:01 | XMS_ITS | Encounter Summary ---
Author Organization [employer] [facility] Address [address] [place] [address] [address] [place] [address] Care Team Providers Care Oracle Adf Developer Name Role Phone Jahaira Bailey MD Primary Care Provide r Reason for Visit * Reason Comments Med Refill Encounter Details Date Type Department Care Team (Late Contact Info) Description 01/20/2023 Refill [facility] [address] [place] [phone] Sammy Vyas MD [address] [place] [phone] Uncomplicated opioid dependence ([facility]/HCC) Social History Tobacco Use Types Packs/Day Years [...] Description 08/11/2025 9:00 AM EDT Office Visit [facility] [address] [place] [address] Sammy Vyas MD [address] [place] [phone] documented as of this encounter Visit Diagnoses Diagnosis Uncomplicated opioid dependence (CMS/HCC) documented in this encounter Care Teams Oracle Adf Developer Relationship Specialty Start Date End Date Jahaira Bailey MD [address] [place] [address] PCP - General Family Medicine 10/08/19 documented as of this encounter
--- OUTSIDE RECORDS SUMMARY | 2025-07-14 16:01 | XMS_ITS | Encounter Summary ---
Author Organization [employer] [facility] Address [address] [place] [address] [address] [place] [address] Care Team Providers Care Stone Processing Machine Operator Name Role Phone Jahaira Bailey MD Primary Care Provide r Reason for Visit * Reason Comments Med Refill Encounter Details Date Type Department Care Team (Late Contact Info) Description 09/04/2023 Refill [facility] [address] [place] [phone] Sammy Vyas MD [address] [place] [phone] Uncomplicated opioid dependence ([facility]/HCC) Social History Tobacco Use Types Packs/Day Years [...] Upcoming Encounters Date Type Department Care Team ([facility] Contact Info) Description 08/11/2025 9:00 AM EDT Office Visit [facility] [address] [place] [phone] Sammy Vyas MD [address] [place] [phone] documented as of this encounter Visit Diagnoses Diagnosis Uncomplicated opioid dependence (CMS/HCC) documented in this encounter Care Teams Stone Processing Machine Operator Relationship Specialty Start Date End Date Jahaira Bailey MD [address] [place] [address] PCP - General Family Medicine 10/08/19 documented as of this encounter
[2025-07-14 16:12] LABS: MANUAL DIFF FLAG NO
[2025-07-14 16:26] LABS: Hematocrit 45.4 % (42.0-52.0); Hemoglobin 15.1 g/dl (14.0-18.0); Imm Gran Abs Auto 0.05 X10*3/uL (0.00-0.03); Imm Gran Pct Auto 0.6 % (0.0-0.4); Lymphocytes Absolute Auto 2.7 X10*3/uL (1.2-4.9); Mean Corpuscular HGB Conc 33.3 g/dl (31.0-36.0); Mean Corpuscular Hemoglobin 30.2 pg (27.0-33.0); Mean Corpuscular Volume 90.8 fL (80.0-98.0); NRBC Abs Auto 0.000 X10*3/uL (0.0-0.012); NRBC Pct Auto 0.0 /100WBC (0.0-0.2); Platelet Count 203 X10*3/uL (160-400); Red Blood Count 5.00 X10*6/uL (4.60-5.80); White Blood Count 8.4 X10*3/uL (4.8-10.8)
[2025-07-14 16:33] LABS: Anion Gap 12 (12-20); Blood Urea Nitrogen 20 mg/dL (9-16); Calcium 9.6 mg/dL (8.4-10.2); Carbon Dioxide 27 mmol/L (22-29); Chloride 106 mmol/L (96-108); Estimated Glomerular Filt Rate 57; Potassium 4.4 mmol/L (3.3-5.1); Sodium 141 mmol/L (135-145)
[2025-07-14 16:38] LABS: Hemoglobin A1C 163.5798 umol/L; Total Hemoglobin (HGBA1C) 3937.1750 umol/L
[2025-07-14 16:54] LABS: Alanine Aminotransferase 32 U/L (0-40); Albumin Level 4.9 g/dL (3.5-5.0); Alkaline Phosphatase 109 U/L (39-117); Anion Gap 12 (12-20); Aspartate Amino Transferase 27 U/L (5-37); Blood Urea Nitrogen 20 mg/dL (9-16); Calcium 9.6 mg/dL (8.4-10.2); Carbon Dioxide 28 mmol/L (22-29); Chloride 106 mmol/L (96-108); Cholesterol 245 mg/dL (<200); Estimated Glomerular Filt Rate 58; HDL Cholesterol 45 mg/dL (>40); Potassium 4.6 mmol/L (3.3-5.1); Sodium 141 mmol/L (135-145); Total Protein 8.1 g/dL (6.5-8.0); Triglycerides 161 mg/dL (<150)
[2025-07-14 17:02] LABS: Free T4 (Free Thyroxine) 1.00 ng/dL (0.71-1.85); Thyroid Stimulating Hormone 1.07 uIU/mL (0.32-4.0)
== END 2025-07-14 13:29 | disposition home or self-care (01) ==
LOC: HO.HHCL 13:28
PROVIDERS: PCP Internal Medicine; Referring Provider Registered Nurse Psychiatric/Mental Health; Visit Provider Emergency Medicine
DX: L02.211 Cutaneous abscess of abdominal wall (principal); Z79.899 Other long term (current) drug therapy
CPT/HCPCS: 36415; 80048; 80053; 80061; 82248; 83036; 84439; 84443; 85025

== ENCOUNTER 2025-09-23 09:52 | Outpatient (REF) | payer MEDICAID, SELFPAY ==
[2025-09-23 12:12] LABS: Appearance Urine Clear; Glucose Urine UA Negative (Negative); PH 6.0 (5.0-9.0); Specific Gravity - Urine 1.025 (1.005-1.025)
[2025-09-23 12:26] LABS: Hematocrit 43.5 % (42.0-52.0); Hemoglobin 13.9 g/dl (14.0-18.0); Mean Corpuscular HGB Conc 32.0 g/dl (31.0-36.0); Mean Corpuscular Hemoglobin 29.6 pg (27.0-33.0); Mean Corpuscular Volume 92.8 fL (80.0-98.0); NRBC Abs Auto 0.000 X10*3/uL (0.0-0.012); NRBC Pct Auto 0.0 /100WBC (0.0-0.2); Platelet Count 176 X10*3/uL (160-400); Red Blood Count 4.69 X10*6/uL (4.60-5.80); White Blood Count 8.2 X10*3/uL (4.8-10.8)
[2025-09-23 13:01] LABS: Microalbum/Creatinine Ratio Ur 4.1 ug/mg cr (<30); Total Protein Urine Random < 7 mg/dL (<12)
[2025-09-23 13:23] LABS: Parathyroid Hormone Intact 149.5 pg/mL (8.7-77.1)
[2025-09-23 13:45] LABS: Anion Gap 12 (12-20); Blood Urea Nitrogen 17 mg/dL (9-16); Calcium 8.9 mg/dL (8.4-10.2); Carbon Dioxide 23 mmol/L (22-29); Chloride 109 mmol/L (96-108); Estimated Glomerular Filt Rate > 60; Potassium 4.1 mmol/L (3.3-5.1); Sodium 140 mmol/L (135-145)
[2025-09-24 08:33] LABS: Anti Nuclear Antibody Screen NEGATIVE (NEGATIVE)
[2025-09-24 09:05] LABS: HBS Num1 59.48 mIU/mL (0-7.99); HBc Num1 10.51 S/CO (0.00-0.79); HBsAGNum1 0.32 S/CO (0.00-0.99); HIV Num 1 0.09 S/CO (0.00-0.99); Hepatitis B Surface Antigen Negative (Negative); ~HepC Num1 14.09 S/CO (0.00-0.79); ~Hepatitis B Surface Antibody REACTIVE (Nonreactive); ~Hepatitis C Antibody Reactive (Nonreactive)
[2025-09-24 10:43] LABS: HBc Num2 10.28 S/CO; HBc Num3 10.22 S/CO
[2025-09-24 16:48] LABS: Prot Elec - Albumin 4.1 g/dL (3.8-4.8); Prot Elec - Alpha1 0.3 g/dL (0.2-0.3); Prot Elec - Alpha2 0.8 g/dL (0.5-0.9); Prot Elec - Beta 1 0.4 g/dL (0.4-0.6); Prot Elec - Beta 2 0.4 g/dL (0.2-0.5); Prot Elec - Gamma 1.1 g/dL (0.8-1.7); Prot Elec - Total Protein 7.0 g/dL (6.1-8.1)
[2025-09-24 21:44] LABS: Proteinase 3 PR3 Antibodies <1.0 AI
[2025-09-28 00:09] LABS: Kappa, Serum 272 mg/dL (176-443); Kappa/Lambda Ratio, Serum 1.80 (1.29-2.55); Lambda, Serum 151 mg/dL (91-240)
[2025-09-29 10:34] LABS: PEU-Protein Creat Ratio Rand 0.116 (0.025-0.148); PEU-Rand. Prot/Creat Ratio 116 mg/g creat (25-148); PEU-Random Ur. Gamma Globulin 0 %; PEU-Random Urine A1 Globulin 0 %; PEU-Random Urine A2 Globulin 0 %; PEU-Random Urine Albumin 100 %; PEU-Random Urine Beta Globulin 0 %; PEU-Random Urine Creatinine 155 mg/dL (20-320); PEU-Random Urine Protein 18 mg/dL (5-25)
[2025-09-29 22:18] LABS: Phospholipase A2 IgG ELISA <4 RU/mL; Phospholipase A2 IgG IFA NEGATIVE (NEGATIVE)
== END 2025-09-23 09:53 | disposition home or self-care (01) ==
LOC: HO.LAB 09:52
PROVIDERS: PCP Internal Medicine; Visit Provider Internal Medicine Critical Care Medicine
DX: I12.9 Hypertensive chronic kidney disease with stage 1 through stage 4 chronic kidney disease, or unspecified chronic kidney disease (principal); N18.31 Chronic kidney disease, stage 3a; E66.01 Morbid (severe) obesity due to excess calories; F17.210 Nicotine dependence, cigarettes, uncomplicated; Z11.4 Encounter for screening for human immunodeficiency virus [HIV]; Z11.59 Encounter for screening for other viral diseases; Z79.899 Other long term (current) drug therapy; Z01.84 Encounter for antibody response examination
CPT/HCPCS: 80048; 81003; 82043; 82306; 82570; 83520; 83883; 83970; 84100; 84156; 84165; 84166; 85027; 86021; 86038; 86160; 86255; 86704; 86706; 86803; 87340; 87389; 99202

== ENCOUNTER 2025-09-23 09:52 | Outpatient (AMB) | payer MEDICAID, SELFPAY ==
--- NOTE | 2025-09-23 10:05 | HO.NEPHOV_ITS ---
Vital Signs 09/23/25 10:06 Height 5 ft 2 in Weight 167 lb 8 oz BMI 30.6 BP 110/70 Blood Pressure Location Lt brachial Position Sitting Pulse 86 Pulse Source Pulse Oximeter Pulse Oximetry (%) 94 Oxygen Delivery Method Room Air Intake Visit Reasons: Chronic Kidney Dz/Hypertension-Conf Life Sciences Director Required: Yes Life Sciences Director Language: General Distillery Worker Services: Life Sciences Director Present Life Sciences Director Name: Stacia [id number] Information Interpreted: clinical only Accompanied by: Self / Same As Patient Allergies No Known Allergies (No Known Allergies*) Allergy (Verified 09/23/25 10:06) HPI Comments Details: 45-year-old gentleman with past medical history of hypertension, hyperlipidemia he is referred to renal clinic by PCP for CKD stage 3. Interpretor: [id number] Sara. Hypertension: Since , on amlodipine 2.5 mg Nephrolithiasis: July 2020 left ureteroscopy laser lithotripsy stent placement, calcium oxalate stones. He has pain in his kidneys he think, like last week for a couple of days but none this week. [facility] Medical History (Updated 09/23/25 @ 10:28 by Nathaniel Baron MD) Visual impairment Stage 3a chronic kidney disease Pruritus Chronic hepatitis C Generalized anxiety disorder Seasonal allergies Heartburn Moderate episode of recurrent major depressive disorder PTSD (post-traumatic stress disorder) Weight gain Elevated blood pressure reading Primary hypertension Moderate persistent asthma without complication Loud snoring Hypersomnia Illiteracy Cognitive deficits Diminished vision Drug induced constipation History of substance use disorder Atypical chest pain Insomnia Infection of skin due to methicillin resistant Staphylococcus aureus (MRSA) Asthma Family History Mother Ovarian cancer Social History Household Members: Other Housing Other:: Homeless Alcohol intake: never Patient Tobacco Use Status: Current someday Tobacco user Cigarettes Per Day: 15 Review of Systems Const Details: Const : no body aches, no chills Eyes: no blurry vision and no change in vision ENT: no bleeding gums and no change in voice, no dizziness Card: no chest pain, no shortness of breath, no orthopnea, no PND Resp: no cough, no excessive phlegm production, no SOB GI: no abdominal pain and no nausea, no vomiting : no hematuria, no urinary frequency and no difficulty voiding Musc: no abnormal gait, no bone pain Neuro: no dizziness, no abnormal gait and no behavioral changes Psych: no behavioral changes and no change in appetite Endo: no change in body appearance, no excessive sweating and no fatigue Physical Exam Vital Signs: BMI result Body Mass Index 30.6 General: not in any acute distress, comfortable, sitting on the chair Nutritional Appearance: well nourished and overweight Eyes: normal position, no icterus Neck: No lymphadenopathy, no thyromegaly Resp: bilateral air entry equal, no added sounds present Cardio: normal S1, S2 heard, no murmur heard, no edema GI: soft, nontender, no guarding, no hepatosplenomegaly : bladder normal to inspection, bladder normal to palpation, no renal angle tenderness Skin: no rashes or lesions noted and elasticity normal Neuro: oriented to person, oriented to place, oriented to time and moves all extremities Results Reviewed Nephrology Results: Hgb, (14.0-18.0) 15.1 g/dl 07/14/25 WBC, (4.8-10.8) 8.4 X10*3/uL 07/14/25 Plt Count, (160-400) 203 X10*3/uL 07/14/25 Sodium, (135-145) 141 mmol/L 07/14/25 Potassium, (3.3-5.1) 4.6 mmol/L 07/14/25 Chloride, (96-108) 106 mmol/L 07/14/25 Carbon Dioxide, (22-29) 28 mmol/L 07/14/25 BUN, (9-16) 20 mg/dL H 07/14/25 Creatinine, (0.5-1.4) 1.32 mg/dL 07/14/25 Calcium, (8.4-10.2) 9.6 mg/dL 07/14/25 Urine Protein, (Neg-Trace) Negative mg/dL 07/10/24 Urine Creatinine 139.23 mg/dL 07/10/24 Renal US 10/18/21 Assessment & Plan Assessment & Plan (1) Stage 3a chronic kidney disease: Code(s): N18.31 - Chronic kidney disease, stage 3a Category: Medical (2) Hypertension: Code(s): I10 - Essential (primary) hypertension Category: Medical (3) Morbid obesity: Code(s): E66.01 - Morbid (severe) obesity due to excess calories Category: Medical Plan Chronic kidney disease stage : Possibly secondary to atherosclerotic vascular disease - no family history of CKD, no history of renal stones in the past, NSAID use. - creatinine 1.32 , GFR 58 - we will get urinalysis, urine microalbumin creatinine ratio and UPCR: - Renal ultrasound slightly smaller size right kidney in 2020, 9 cm with some sub mm nonobstructing renal calculi - avoid nephrotoxic medications not limited to NSAIDs, contrast etc. - importance of LPD protein about 0.6mg/kg/day, benefits of plant based diet, weight loss, adequate blood pressure control, stop smoking well explained to patient - will get hepatitis panel, HIV, DIO, ANCA, complements, SPEP, UPEP, serum free light chains, PLA2R Hypertension: - target blood pressures less than 130/90 mm Hg - compliance: - continue amlodipine 2.5 mg Kidney stones: - secondary to calcium oxalate stones in 2020 - we will get urine pH , , urine calcium: - we will get PTH: Vitamin-D level: - we will get Phosphorus: Mg: - will start the patient on thiazides, vitamin D and bicitra if anything signifi cant or has significant hypercalcuria. - advised the patient for fluid intake at least 3 L per day, more so in summer - low-sodium diet, increased dairy products with the meals, increased [place] and citrous intake (without added sugar) - decrease animal protein, avoid sugar sweetened sodas, fruit punch, grapefruit and large volume cranberry juice. - AVOID high oxalate food: spinach rhubarb, nuts, beets, tea, chocolate and soy products This note is constructed using voice recognition software. While every effort has been made to ensure accuracy neon tube pumper errors may have been included. Total time spent in the clinic is about 40 minutes, 10 minutes on chart review, review of data, 20 minutes on encounter, physical examination, counseling, answering all the questions, 10 minutes on documentation. Orders: Orders RT home sleep study Today E66.01 - Morbid (severe) obesity due to excess calories, I10 - Essential (primary) hypertension, N18.31 - Chronic kidney disease, stage 3a Microalbumin, Random (w Creat) Today E66.01 - Morbid (severe) obesity due to excess calories, I10 - Essential (primary) hypertension, N18.31 - Chronic kidney disease, stage 3a UA and rflx microscopic Today E66.01 - Morbid (severe) obesity due to excess calories, I10 - Essential (primary) hypertension, N18.31 - Chronic kidney disease, stage 3a Parathyroid Hormone Intact Today E66.01 - Morbid (severe) obesity due to excess calories, I10 - Essential (primary) hypertension, N18.31 - Chronic kidney disease, stage 3a Phosphorus Today E66.01 - Morbid (severe) obesity due to excess calories, I10 - Essential (primary) hypertension, N18.31 - Chronic kidney disease, stage 3a Hepatitis B,C Profile Today E66.01 - Morbid (severe) obesity due to excess calories, I10 - Essential (primary) hypertension, N18.31 - Chronic kidney disease, stage 3a DIO Reflex Titer and Pattern Today E66.01 - Morbid (severe) obesity due to excess calories, I10 - Essential (primary) hypertension, N18.31 - Chronic kidney disease, stage 3a ANCA Vasculitides Today E66.01 - Morbid (severe) obesity due to excess calories, I10 - Essential (primary) hypertension, N18.31 - Chronic kidney disease, stage 3a Complement C4 Today E66.01 - Morbid (severe) obesity due to excess calories, I10 - Essential (primary) hypertension, N18.31 - Chronic kidney disease, stage 3a Complement C3 Today E66.01 - Morbid (severe) obesity due to excess calories, I10 - Essential (primary) hypertension, N18.31 - Chronic kidney disease, stage 3a Protein Electrophoresis,Ran Ur Today E66.01 - Morbid (severe) obesity due to excess calories, I10 - Essential (primary) hypertension, N18.31 - Chronic kidney disease, stage 3a UA and rflx microscopic 1 Month I10 - Essential (primary) hypertension, N18.31 - Chronic kidney disease, stage 3a Basic Metabolic Panel 1 Month I10 - Essential (primary) hypertension, N18.31 - Chronic kidney disease, stage 3a Microalbumin, Random (w Creat) 1 Month I10 - Essential (primary) hypertension, N18.31 - Chronic kidney disease, stage 3a US renal BI Today E66.01 - Morbid (severe) obesity due to excess calories, I10 - Essential (primary) hypertension, N18.31 - Chronic kidney disease, stage 3a Total Protein Urine Random Today E66.01 - Morbid (severe) obesity due to excess calories, I10 - Essential (primary) hypertension, N18.31 - Chronic kidney disease, stage 3a Vitamin D 25-OH Total Today E66.01 - Morbid (severe) obesity due to excess calories, I10 - Essential (primary) hypertension, N18.31 - Chronic kidney disease, stage 3a Complete Blood Count no Diff Today E66.01 - Morbid (severe) obesity due to excess calories, I10 - Essential (primary) hypertension, N18.31 - Chronic kidney disease, stage 3a Basic Metabolic Panel Today E66.01 - Morbid (severe) obesity due to excess calories, I10 - Essential (primary) hypertension, N18.31 - Chronic kidney disease, stage 3a HIV Ab/Ag Today E66.01 - Morbid (severe) obesity due to excess calories, I10 - Essential (primary) hypertension, N18.31 - Chronic kidney disease, stage 3a Protein Electrophoresis, Serum Today E66.01 - Morbid (severe) obesity due to excess calories, I10 - Essential (primary) hypertension, N18.31 - Chronic kidney disease, stage 3a Pittman/Lambda Light Chain Serum Today E66.01 - Morbid (severe) obesity due to excess calories, I10 - Essential (primary) hypertension, N18.31 - Chronic kidney disease, stage 3a Phospholipase A2 Receptor Pnl Today E66.01 - Morbid (severe) obesity due to excess calories, I10 - Essential (primary) hypertension, N18.31 - Chronic kidney disease, stage 3a Coding Level of Care Code New Pt Level 4 (66847) Diagnoses Stage 3a chronic kidney disease N18.31 Hypertension I10 Morbid obesity E66.01
[2025-09-23 10:06] VITALS: BP 110/70; PULSE 86; O2SAT 94; BMI 30.6
== END 2025-09-23 10:46 | disposition home or self-care (01) ==
LOC: HO.HKA 09:53
PROVIDERS: PCP Internal Medicine; Visit Provider Internal Medicine Critical Care Medicine
DX: N18.31 Chronic kidney disease, stage 3a (principal); I10 Essential (primary) hypertension; E66.01 Morbid (severe) obesity due to excess calories
CPT/HCPCS: 99204

== ENCOUNTER 2025-11-03 15:23 | Outpatient (AMB) | payer MEDICAID, SELFPAY ==
--- OUTSIDE RECORDS SUMMARY | 2025-11-03 09:15 | XMS_ITS | Encounter Summary ---
Author Organization [employer] Address [address] [facility] [address] [place] [address] Care Team Providers Care Buildings And Grounds Superintendent Name Role Phone Jahaira Bailey MD Primary Care Provide r Reason for Visit * Reason Comments OBAT F/U Encounter Details Date Type Department Care Team ([facility] st Contact Info) Description 11/03/2025 9:15 AM EST Office Visit [facility] [address] [place] [address] Sammy Vyas MD [address] [place] [address] Opioid dependence on maintenance agonist therapy, no symptoms (CMS/HCC) (HCC) (Primary Dx); Tobacco use disorder Social History Tobacco Use Types Packs/Day Years Used Date Smoking Tobacco: Every Day Cigarettes Passive Smoke Exposure: Current Smokeless Tobacco: Never Alcohol Use Standard Drinks/Week Comments Not Currently 0 (1 standard drink = 0.6 oz pur e alcohol) Depression Answer Date Recorded Patient Health Questionnaire-9 Score 2 11/03/2025 Patient Health Questionnaire-9 Score 2 11/03/2025 Last PHQ-9: Questionnaire Data Not on file 1 Housing Stability Answer Date Recorded What is your housing situation today? I do not have housing (Staying with others, in a hotel, in a prison, living outside on the street, on a [...] the past 12 months, has t he [place], [place], oil or water [employer] threatened to shut off services in your home? I am not sure 03/05/2025 Depression Answer Date Recorded Patient Health Questionnaire-2 Score 2 11/03/2025 Internet Access Answer Date Recorded Internet Access Q1 I am not sure 03/05/2025 Internet Access Q2 Not on file 03/05/2025 Sex and Gender Information Value Date Recorded Sex Assigned at Male 09/04/2022 10:19 AM EDT Legal Sex Male 10:19 AM EDT Gender Identity Male 09/04/2022 10:19 AM EDT Sexual Orientation Straight 09/04/2022 10 :19 AM EDT documented as of this encounter Functional Status * SBIRT - Alcohol Question Answer Date of Assessment Author How many times in the past y ear have you had 5 or more (for men) or 4 or more (for women) drinks in a day? 0 11/03/2025 9:16 AM Steve Hill ra, [place] Score 0 11/03/2025 9:[address] [place] * SBIRT - Drugs Question Answer Date of Assessment Author How many times in the past y ear have you used an illegal drug or used a prescription medication for non-medical reasons? 0 11/03/2025 9:16 AM Steve Hill ra, [place] Score 0 11/03/2025 9:[address] [place] * Over the past 2 weeks, how often have you been bothered by any of the following problems? Question Answer Date of Assessment Author Patient Health Questionnaire -2 Score 2 11/03/2025 9:17 AM Steve Hill ra, [place] * Little interest or pleasure in doing things Answer Date of Assessment Author Several days 11/03/2025 9:17 AM Sarah Hill [place] * Feeling down, depressed, or hopeless Answer Date of Assessment Author Several days 11/03/2025 9:17 AM Sarah Hill [place] * Trouble falling or staying asleep, or sleeping too much Answer Date of Assessment Author Not at all 11/03/2025 9:17 AM Sarah Hill [place] * Feeling tired or having little energy Answer Date of Assessment Author Not at all 11/03/2025 9:17 AM Sarah Hill MA * Poor appetite or overeating Answer Date of Assessment Author Not at all 11/03/2025 9:17 AM Sarah Hill [place] * Feeling bad about yourself - or that you are a failure or have let yourself or your family down Answer Date of Assessment Author Not at all 11/03/2025 9:17 AM Sarah Hill MA * Trouble concentrating on things, such as reading the newspaper or watching television Answer Date of Assessment Author Not at all 11/03/2025 9:17 AM Sarah Hill MA * Moving or speaking so slowly that other people could have noticed? Or the opposite - being so fidgety or restless that you have been moving around a lot more than usual. Answer Date of Assessment Author Not at all 11/03/2025 9:17 AM Sarah Hill MA * Thoughts that you would be better off or hurting yourself in some way Answer Date of Assessment Author Not at all 11/03/2025 9:17 AM Sarah Hill MA * Patient Health Questionnaire-9 Score Answer Date of Assessment Author 2 11/03/2025 9:17 AM Sarah Hill MA documented as of this encounter Plan of Treatment Upcoming Encounters Date Type Department Care Team (Late st Contact Info) Description 01/26/2026 9:15 AM EDT Office Visit [facility] [address] [place] [address] Sammy Vyas MD [address] [place] [address] documented as of this encounter Procedures Procedure Name Priority Date/Time Associated Diagnosis Comments POCT LIN-14 URINE DRUG SCREEN Routine 11/03/2025 9:09 AM EST Opioid dependence on maintenance agonist therapy, no symptoms (CMS/HCC) (HCC) documented in this encounter Results * (ABNORMAL) POCT LIN-14 Urine Drug Screen (11/03/2025 9:09 AM EST) Amphetamine Screen, Urine Negative Negative Barbiturate Screen, Urine Negative Negative Buprenophine Screen, Urine Positive(A) Negative Benzodiazepines Screen, Urine Negative Negative Cocaine Screen, Urine Negative Negative Fentanyl, Urine Negative Negative MDMA Urine Negative Negative ng/mL Methamphetamine Screen Urine Negative Negative Opiate Screen, Urine Negative Negative Methadone Screen, Urine Negative Negative Oxycodone Screen, Urine Negative Negative Phencyclidine (PCP), Urine Negative Negative TCA, Urine Negative Negative THC Negative Negative Urine Urine specimen obtained by clean catch procedure / Unknown 11/03/2025 9:09 AM EST us Sammy Vyas MD POINT OF CARE TEST ENTER/EDIT ORDERABLES Final Result documented in this encounter Visit Diagnoses Diagnosis Opioid dependence on maintenance agonist therapy, no symptoms (CMS/HCC) (HCC)- Primary Tobacco use disorder documented in this encounter Additional Health Concerns Assessment Noted Time PHQ-9 Depression Total Score: 2 11/03/20 25 9:17 AM EST documented as of this encounter Care Teams Buildings And Grounds Superintendent Relationship Specialty Start Date End Date Jahaira Bailey MD [address] [place] [phone] PCP - General Family Medicine 10/08/19 documented as of this encounter
--- NOTE | 2025-11-03 16:00 | HO.NEPHOV ---
Vital Signs 11/03/25 16:02 Height 5 ft 2 in Weight 164 lb 4 oz BMI 30.0 BP 131/88 Blood Pressure Location Lt brachial Position Sitting Pulse 89 Pulse Source Pulse Oximeter Pulse Oximetry (%) 96 Oxygen Delivery Method Room Air Intake Visit Reasons: 1 mo f/u Motel Front Desk Attendant Required: Yes Motel Front Desk Attendant Name: Balaji [id number] Accompanied by: Self / Same As Patient Allergies No Known Allergies (No Known Allergies*) Allergy (Verified 11/03/25 16:04) Do you need a note to return to daycare/school/sports/work: No HPI Comments Details: 45-year-old gentleman with past medical history of hypertension, hyperlipidemia he is referred to renal clinic by PCP for CKD stage 3. Interpretor: [id number] Sara. Hypertension: Since , on amlodipine 2.5 mg Nephrolithiasis: July 2020 left ureteroscopy laser lithotripsy stent placement, calcium oxalate stones. He has pain in his kidneys he think, like last week for a couple of days but none this week. [facility] Medical History Visual impairment Stage 3a chronic kidney disease Pruritus Chronic hepatitis C Generalized anxiety disorder Seasonal allergies Heartburn Moderate episode of recurrent major depressive disorder PTSD (post-traumatic stress disorder) Weight gain Elevated blood pressure reading Primary hypertension Moderate persistent asthma without complication Loud snoring Hypersomnia Illiteracy Cognitive deficits Diminished vision Drug induced constipation History of substance use disorder Atypical chest pain Insomnia Infection of skin due to methicillin resistant Staphylococcus aureus (MRSA) Asthma Family History Mother Ovarian cancer Social History Household Members: Other Housing Other:: Homeless Alcohol intake: never Patient Tobacco Use Status: Current someday Tobacco user Cigarettes Per Day: 15 Review of Systems Const Details: Const : no body aches, no chills, no excessive sweating and no fatigue Eyes: no blurry vision and no change in vision ENT: no bleeding gums and no change in voice, no dizziness Card: no chest pain, no shortness of breath, no orthopnea, no PND Resp: no cough, no excessive phlegm production, no SOB GI: no abdominal pain and no nausea, no vomiting : no hematuria, no urinary frequency and no difficulty voiding Musc: no abnormal gait, no bone pain Neuro: no abnormal movements, no weakness Psych: no behavioral changes and no change in appetite Endo: no change in body appearance, no excessive sweating and no fatigue Physical Exam Vital Signs: BMI result Body Mass Index 30.0 General: not in any acute distress, comfortable, sitting on the chair Nutritional Appearance: well nourished and weight Eyes: normal position, no icterus Neck: No lymphadenopathy, no thyromegaly Resp: bilateral air entry equal, no added sounds present Cardio: normal S1, S2 heard, no murmur heard, no edema GI: soft, nontender, no guarding, no hepatosplenomegaly : bladder normal to inspection, bladder normal to palpation, no renal angle tenderness Skin: no rashes or lesions noted and elasticity normal Neuro: oriented to person, oriented to place, oriented to time and moves all extremities Results Reviewed Nephrology Results: Hgb, (14.0-18.0) 13.9 g/dl L 09/23/25 WBC, (4.8-10.8) 8.2 X10*3/uL 09/23/25 Plt Count, (160-400) 176 X10*3/uL 09/23/25 Sodium, (135-145) 140 mmol/L 09/23/25 Potassium, (3.3-5.1) 4.1 mmol/L 09/23/25 Chloride, (96-108) 109 mmol/L H 09/23/25 Carbon Dioxide, (22-29) 23 mmol/L 09/23/25 BUN, (9-16) 17 mg/dL H 09/23/25 Creatinine, (0.5-1.4) 1.07 mg/dL 09/23/25 Calcium, (8.4-10.2) 8.9 mg/dL Δ 09/23/25 Phosphorus, (2.7-4.5) 2.9 mg/dL 09/23/25 PTH Intact, (8.7-77.1) 149.5 pg/mL H 09/23/25 Urine Protein, (Neg-Trace) Negative mg/dL 09/23/25 Urine Creatinine 167.87 mg/dL 09/23/25 Protein/Creatinin Ratio, (25-148) 116 mg/g creat 11/19/25 Renal US 10/18/21 Assessment & Plan Assessment & Plan (1) Hypertension: Code(s): I10 - Essential (primary) hypertension Category: Medical (2) Nephrolithiasis: Code(s): N20.0 - Calculus of kidney Category: Medical (3) Stage 3a chronic kidney disease: Code(s): N18.31 - Chronic kidney disease, stage 3a Category: Medical Plan Chronic kidney disease stage II/III : Possibly secondary to atherosclerotic vascular disease - no family history of CKD, no history of renal stones in the past, NSAID use. - creatinine 1.07 , GFR >60 - urinalysis normal, urine microalbumin creatinine ratio and UPCR: engative - importance of weight loss, adequate blood pressure control, stop smoking well explained to patient - negative hepatitis panel, HIV, DIO, ANCA, complements, SPEP, UPEP, serum free light chains Hypertension: - target blood pressures less than 130/90 mm Hg - compliance: - will stop amlodipine 2.5 mg and start on thiazides to help him decrease calcuria thereby reducing stones. Kidney stones: - secondary to calcium oxalate stones in 2020 - urine pH 6.0 - PTH: 149.0 Vitamin-D level: 13.3, Phosphorus:2.9 - US kidney 2 3mm stones in the right and 5mm stone in the left. Will prescribe him tamsulosin for stone expulsion therapy and asked him to take few days of over the counter pain medications. Told him that he needs to stop OTC pain pills in a week or else it will start affecting his kidneys, he states his understanding. Will followup him in a month to see if he has passed the stones, if not will refer him to urology.Asked him drink a bottle of beer every night and adequate water intake until the stone is passed. - will start the patient on thiazides and vitamin D; called the pharmacy and confirmed his medication list - advised the patient for fluid intake at least 3 L per day, more so in summer - low-sodium diet, increased dairy products with the meals, increased [place] and citrous intake (without added sugar) - decrease animal protein, avoid sugar sweetened sodas, fruit punch, grapefruit and large volume cranberry juice. - AVOID high oxalate food: spinach rhubarb, nuts, beets, tea, chocolate and soy products This note is constructed using voice recognition software. While every effort has been made to ensure accuracy account executive sales representative errors may have been included. Total time spent in the clinic is about 40 minutes, 10 minutes on chart review, review of data, 20 minutes on encounter, physical examination, counseling, answering all the questions, 10 minutes grain operations manager with pharmacy to confirm his medications. Medications: New hydrochlorothiazide 25 mg PO DAILY 30 tabs 5RF 30 days tamsulosin 0.4 mg PO BEDTIME 30 caps 0RF Coding Level of Care Code Est Pt Level 4 (39843) Diagnoses Hypertension I10 Nephrolithiasis N20.0 Stage 3a chronic kidney disease N18.31
[2025-11-03 16:02] VITALS: BP 131/88; PULSE 89; O2SAT 96
--- OUTSIDE RECORDS SUMMARY | 2025-11-03 18:47 | XMS_ITS | Encounter Summary ---
Author Organization [employer] Address [address] [facility] [address]t [place] [address] Care Team Providers Care Demand Planning Analyst Name Role Phone Jahaira Bailey MD Primary Care Provide r Encounter Details Date Type Department Care Team (Latest Contact Info) Description 11/03/2025 Travel Social History Tobacco Use Types Packs/Day [...] with others, in a hotel, in a fci, living outside on the street, on a [...] Description 01/26/2026 9:15 AM EDT Office Visit [facility] [address] [place] [address] Sammy Vyas MD [address] [place] [address] documented as of this encounter Visit Diagnoses Not on filedocumented in this encounter Additional Health Concerns Assessment Noted Time PHQ-9 Depression Total Score: 2 11/03/20 25 9:17 AM EST documented as of this encounter Care Teams Demand Planning Analyst Relationship Specialty Start Date End Date Jahaira Bailey MD [address] [place] [address] PCP - General Family Medicine 10/08/19 documented as of this encounter
--- OUTSIDE RECORDS SUMMARY | 2025-11-03 18:47 | XMS_ITS | Encounter Summary ---
Author Organization [employer] Address [address] [facility] [address] [place] [address] Care Team Providers Care Clay Transporter Name Role Phone Jahaira Bailey MD Primary Care Provide r Reason for Visit * Reason Comments Med Refill Encounter Details Date Type Department Care Team ([facility] st Contact Info) Description 08/04/2025 Refill [facility] [address] [place] [address] Sammy Vyas MD [address] [place] [address] Uncomplicated opioid dependence (CMS/HCC) Social History Tobacco [...] with others, in a hotel, in a correction, living outside on the street, on a [...] Description 01/26/2026 9:15 AM EDT Office Visit [facility] [address] [place] [phone] Sammy Vyas MD [address] [place] [address] documented as of this encounter Visit Diagnoses Diagnosis Uncomplicated opioid dependence (CMS/HCC) (HCC) documented in this encounter Additional Health Concerns Assessment Noted Time PHQ-9 Depression Total Score: 6 07/08/20 24 2:41 PM EDT documented as of this encounter Care Teams Clay Transporter Relationship Specialty Start Date End Date Jahaira Bailey MD [address] [place] [address] PCP - General Family Medicine 10/08/19 documented as of this encounter
--- OUTSIDE RECORDS SUMMARY | 2025-11-03 18:47 | XMS_ITS | Encounter Summary ---
Author Organization [employer] [facility] Address [address] [facility] 7t [place] [address] Care Team Providers Care Washing Machine Operator Name Role Phone Jahaira Bailey MD Primary Care Provide r Reason for Visit * Reason Comments Med Refill Encounter Details Date Type Department Care Team (Late st Contact Info) Description 01/20/[address] [facility] MED[facility]INE [address] [place], [place] [phone] Sammy Vyas MD [address] [place], [place] [phone] Uncomplicated opioid dependence (CMS/HCC) Social History Tobacco [...] Description 01/26/2026 9:15 AM EDT Office Visit [facility] [address] [place], [place] [phone] Sammy Vyas MD [address] [place], [place] [phone] documented as of this encounter Visit Diagnoses Diagnosis Uncomplicated opioid dependence (CMS/HCC) (HCC) documented in this encounter Care Teams Washing Machine Operator Relationship Specialty Start Date End Date Jahaira Bailey MD [address] [place] [id number] PCP - General Family Medicine 10/08/19 documented as of this encounter
--- OUTSIDE RECORDS SUMMARY | 2025-11-03 18:47 | XMS_ITS | Encounter Summary ---
Author Organization [employer] Address [address] [facility] 7[address] [place] [address] Care Team Providers Care Asbestos Remover Name Role Phone Jahaira Bailey MD Primary Care Provide r Reason for Visit * Reason Comments Med Refill Encounter Details Date Type Department Care Team ([facility] st Contact Info) Description 01/20/2025 Refill [facility]INE [address] [place] [address] Sammy Vyas MD [address] [place] [address] Uncomplicated opioid dependence (CMS/HCC) Social History Tobacco [...] with others, in a hotel, in a senior care, living outside on the street, on a [...] Description 01/26/2026 9:15 AM EDT Office Visit [facility] [address] [place] [address] Sammy Vyas MD [address] [place] [address] documented as of this encounter Visit Diagnoses Diagnosis Uncomplicated opioid dependence (CMS/HCC) (HCC) documented in this encounter Additional Health Concerns Assessment Noted Time PHQ-9 Depression Total Score: 6 07/08/20 24 2:41 PM EDT documented as of this encounter Care Teams Asbestos Remover Relationship Specialty Start Date End Date Jahaira Bailey MD [address] [place] [phone] PCP - General Family Medicine 10/08/19 documented as of this encounter
--- OUTSIDE RECORDS SUMMARY | 2025-11-03 18:47 | XMS_ITS | Encounter Summary ---
Author Organization [employer] [facility] Address [address] [facility] 7[address] [place] [address] Care Team Providers Care Electric Distribution Checker Name Role Phone Jahaira Bailey MD Primary Care Provide r Reason for Visit * Reason Comments Med Refill Encounter Details Date Type Department Care Team (Late st Contact Info) Description 09/04/2023 Refill [facility] [address] [place], [place] [phone] Sammy Vyas MD [address] [place], [place] [phone] Uncomplicated opioid dependence (CMS/HCC) Social History Tobacco [...] Description 01/26/2026 9:15 AM EDT Office Visit [facility] [address] [place], [place] [phone] Sammy Vyas MD [address] [place], [place] [phone] documented as of this encounter Visit Diagnoses Diagnosis Uncomplicated opioid dependence (CMS/HCC) (HCC) documented in this encounter Care Teams Electric Distribution Checker Relationship Specialty Start Date End Date Jahaira Bailey MD [address] [place] [phone] PCP - General Family Medicine 10/08/19 documented as of this encounter
--- OUTSIDE RECORDS SUMMARY | 2025-11-03 18:48 | XMS_ITS | Encounter Summary ---
Author Organization [employer] Address [address] [facility] [address] [place] [address] Care Team Providers Care Meat Cutting Teacher Name Role Phone Jahaira Bailey MD Primary Care Provide r Reason for Visit * Reason Comments Med Refill Encounter Details Date Type Department Care Team ([facility] st Contact Info) Description 10/27/2025 Refill [facility]INE [address] [place] [address] Sammy Vyas MD [address] [place] [address] Uncomplicated opioid dependence (CMS/HCC) (HCC) Social History Tobacco Use Types Packs/Day Years [...] with others, in a hotel, in a fdc, living outside on the street, on a [...] Description 01/26/2026 9:15 AM EDT Office Visit [facility] MED[facility]INE [address] [place] [phone] Sammy Vyas MD [address] [place] [phone] documented as of this encounter Visit Diagnoses Diagnosis Uncomplicated opioid dependence (CMS/HCC) (HCC) documented in this encounter Additional Health Concerns Assessment Noted Time PHQ-9 Depression Total Score: 6 07/08/20 24 2:41 PM EDT documented as of this encounter Care Teams Meat Cutting Teacher Relationship Specialty Start Date End Date Jahaira Bailey MD [address] [place] [phone] PCP - General Family Medicine 10/08/19 documented as of this encounter
--- OUTSIDE RECORDS SUMMARY | 2025-11-03 18:48 | XMS_ITS | Clinical Summary ---
Author Organization [employer] Address [address] [facility] [address] [place] [address] Care Team Providers Care Lock Operator Name Role Phone Jahaira Bailey MD Primary Care Provide r Allergies No known active allergies Medications * This document contains information received from the source organization and may not represent a complete record from that organization. carboxymethylce llulose 1 % ophthalmic solution Administer 1 drop into both eyes every 8 (eight) hours if needed. 022 Active diphenhydrAMINE (BENADryl) 2 % cream apply daily as needed Active diphenhydrAMINE (BENADryl) 25 MG capsule Take 2 capsules by mouth every 4 (four) hours. Active ergocalciferol (Vitamin D-2) 1.25 MG (38492 UT) capsule Take 1 capsule by mouth once a week. Active hydrOXYzine HCl (Atarax) 25 MG tablet Take 1 tablet by mouth every 8 (eight) hours. 021 Active naloxone (Narcan) 4 mg/0.1 mL nasal spray Administer 0.1 mL into affected nostril(s). Active triamcinolone (Kenalog) 0.1 % cream Apply topically every 12 (twelve) hours. Active prazosin (Minipress) 1 MG capsuleIndicati ons:Nightmares TAKE 1 CAPSULE BY MOUTH AT BEDTIME FOR 7 DAYS THEN TAKE 2 CAPSULES BY MOUTH EVERY DAY AT BEDTIME 60 capsule 2 023 Active famotidine (Pepcid) 20 MG tabletIndicatio ns:Heartburn Take 1 tablet (20 mg) by mouth 2 times daily. 60 tablet 11 023 Active loratadine (Claritin) 10 MG tabletIndicatio ns:Seasonal allergies Take 1 tablet (10 mg) by mouth in the morning. 30 tablet 023 Active Blood Pressure Monitoring (Blood Pressure Cuff) miscIndications :Elevated blood pressure reading 1 each Once daily. 1 each 023 Active fluticasone furoate (Arnuity Ellipta) 200 MCG/ACT inhalerIndicati ons:Moderate persistent asthma without complication Inhale 1 puff Once per day. 1 each 5 024 Active nicotine polacrilex (Nicorelief) 2 MG gumIndications: Tobacco use disorder Chew 1-2 pieces every 1-2 hours instead of a cigarette. 120 each 3 024 Active QUEtiapine (SEROquel) 25 MG tabletIndicatio ns:PTSD (post-traumatic stress disorder),Gener alized anxiety disorder,Insomn ia, unspecified type Take 1 tablet (25 mg) by mouth at bedtime. 30 tablet 025 Active Ventolin HFA 108 (90 Base) MCG/ACT inhalerIndicati ons:Mild persistent asthma without complication INHALE 2 PUFFS BY MOUTH EVERY 4 HOURS NEEDED FOR WHEEZING OR SHORTNESS OF BREATH 18 g 1 025 Active nicotine (Nicoderm CQ) 21 MG/24HR patch Place 1 patch on the skin 1 (one) time each day at the same time. 56 patch 025 Active nicotine polacrilex (Nicorette) 2 MG lozenge 1 or 2 lozenges q 1-2 hours instead of a cigarette 100 lozenge 2 025 Active ibuprofen 600 MG tablet Take 1 tablet (600 mg) by mouth every 6 (six) hours if needed for mild pain. 40 tablet 1 025 2025 Active varenicline (Chantix) 0.5 MG tabletIndicatio ns:Tobacco use disorder 1 pill PO daily x 3 days, then increase to 1 pill PO BID x 4 days. Take with full glass of water. 11 tablet 025 Active varenicline (Chantix) 1 MG tabletIndicatio ns:Tobacco use disorder Take 1 tablet (1 mg) by mouth 2 times daily. Take with full glass of water. Start after 0.5 mg tablets. 60 tablet 1 Active amLODIPine (Norvasc) 2.5 MG tabletIndicatio ns:Primary hypertension TAKE 1 TABLET BY MOUTH EVERY MORNING 90 tablet 1 Active albuterol 108 (90 Base) MCG/ACT inhalerIndicati ons:Mild persistent asthma without complication Inhale 2 puffs every 6 (six) hours if needed for wheezing. 18 g 1 5 1:35 PM EST 025 2025 Active albuterol (2.5 MG/3ML) 0.083% nebulizer solutionIndicat ions:Moderate persistent asthma without complication Take 3 mL (2.5 mg) by nebulization every 4 (four) hours if needed for wheezing. 75 mL 3 5 1:35 PM EST 025 2025 Active fluticasone furoate (Arnuity Ellipta) 100 MCG/ACT inhalerIndicati ons:Moderate persistent asthma without complication Inhale 1 puff Once per day. Rinse mouth with water after use to reduce aftertaste and incidence of candidiasis. Do not swallow. 1 each 5 1:35 PM EST 025 2025 Active cyclobenzaprine (Flexeril) 10 MG tabletIndicatio ns:Muscle spasm,Neck pain,Chronic left shoulder pain Take 1 tablet (10 mg) by mouth 3 times daily. 30 tablet 1 5 1:35 PM EST 025 2024 Active Buprenorphine HCl-Naloxone HCl (Suboxone) 8-2 MG SL filmIndications :Uncomplicated opioid dependence (CMS/HCC) ([facility]) Place 1 Film under the tongue 2 times daily. 56 Film 2 5 9:57 AM EST 025 2025 Active buprenorphine-n aloxone (Suboxone) 2-0.5 MG per sublingual filmIndications :Uncomplicated opioid dependence (CMS/HCC) ([facility]) Place 1 Film under the tongue Once per day. 28 Film 2 5 9:57 AM EST 025 2025 Active albuterol 108 (90 Base) MCG/ACT inhalerIndicati ons:Mild persistent asthma without complication Inhale 2 puffs every 6 (six) hours if needed for wheezing. 18 g 1 023 2024 Discontinued(R eorder (will not trigger notification to Pharmacy)) albuterol (2.5 MG/3ML) 0.083% nebulizer solutionIndicat ions:Moderate persistent asthma without complication Take 3 mL (2.5 mg) by nebulization every 4 (four) hours if needed for wheezing. 75 mL 3 024 2024 Discontinued(R eorder (will not trigger notification to Pharmacy)) Buprenorphine HCl-Naloxone HCl (Suboxone) 8-2 MG SL filmIndications :Uncomplicated opioid dependence (CMS/HCC) ([facility]) Place 1 Film under the tongue 2 times daily. 56 Film 2 5 10:27 AM EST 2024 Discontinued(R eorder (will not trigger notification to Pharmacy)) buprenorphine-n aloxone (Suboxone) 2-0.5 MG per sublingual filmIndications :Uncomplicated opioid dependence (CMS/HCC) ([facility]) Place 1 Film under the tongue Once per day. 28 Film 2 5 10:27 AM EST 025 2024 Discontinued(R eorder (will not trigger notification to Pharmacy)) brompheniramine -pseudoephedrin e-DM 30-2-10 MG/5ML syrupIndication s:Acute cough Take 5 mL by mouth if needed in the morning, at noon, in the evening, and at bedtime for cough for up to 10 days. 120 mL 1 025 2024 Active Problems Problem Noted Date Diagnosed Date Muscle spasm 10/15/2025 Neck pain 10/15/2025 Chronic left shoulder pain 10/15/2025 Acute cough 10/15/2025 Witnessed episode of apnea 03/05/2025 Insomnia 03/05/2025 [...] in the mean time Moderate episode of recurren t major depressive disorder (CMS/HCC) 11/02/2023 Heartburn 11/02/2023 Assessment & Plan (11/02/2023 [...] him in 4 weeks Chronic hepatitis C ([facility]/HCC) 10/03/2022 Assessment & Plan (03/05/2025 2:32 PM EDT): Undetectable Pruritus 10/03/2022 Stage 3a chronic kidney disease (CKD) (CMS/HCC) 10/03/2022 Assessment & Plan (11/02/2023 3:13 PM EST): BMP will be check with labs avoid NSAIDS Drink plenty of water Visual impairment 10/03/2022 Resolved Problems Problem Noted Date Diagnosed Date Resolved Date Anxiety 07/08/2024 07/08/2024 Mild intermittent asthma without complication 11/02/2001/09/2024 Encounters Date Type Department Care Team Description 11/03/2025 9:15 AM EST Office Visit [facility] [address] [place] [phone] Sammy Vyas MD Opioid dependence on maintenance agonist therapy, no symptoms ([facility]) ([facility]) (Primary Dx); Tobacco use disorder 11/03/2025 Travel 10/27/2025 Refill [facility] [address] [place] [phone] Sammy Vyas MD Uncomplicated opioid dependence ([facility]/HCC) ([facility]) 10/26/2025 Refill [facility] [address] [place] [phone] Dee Borden RN Uncomplicated opioid dependence ([facility]/HCC) ([facility]) 10/15/2025 11:00 AM EST Office Visit [facility] [address] [place] [phone] Jahaira Bailey MD Primary hypertension (Primary Dx); Dietary counseling; Exercise counseling; Class 1 obesity due to excess calories with serious comorbidity and body mass index (BMI) of 30.0 to 30.9 in adult; Moderate persistent asthma without complication; Mild persistent asthma without complication; Muscle spasm; Diminished vision; Neck pain; Chronic left shoulder pain; Acute cough; Encounter for immunization 10/15/2025 Travel 10/14/2025 Telephone [facility] [address] [place] [phone] Jahaira Bailey MD Chart prep 10/06/2025 Patient Outreach [facility] [address] [place] [phone] Jahaira Bailey MD Pre-visit Planning (SDOH screening completed on 03/05/2025) 09/23/2025 Orders Only GENERIC EXTERNAL DATA DEPARTMENT Provider, Generic External Data 08/11/2025 9:00 AM EDT Office Visit [facility] [address] [place] [address] [phone] Sammy Vyas MD Opioid dependence in remission (CMS/HCC) (HCC) (Primary Dx); Tobacco use disorder 08/11/2025 Orders Only [address] [phone] Jahaira Bailey MD Stage 3a chronic kidney disease (CKD) (CMS/HCC) (HCC); Primary hypertension 08/11/[address] [phone] Jahaira Bailey MD telephone call 08/11/2025 Travel 08/04/2025 Refill [facility] [address] [place] [phone] Dee Borden, EDITH Uncomplicated opioid dependence (CMS/HCC) 08/04/[address] [phone] Sammy Vyas MD Uncomplicated opioid dependence (CMS/HCC) from Last 3 Months Immunizations Immunization Administration Dates Next Due Hep A, Adult 02/28/2022,07/05/2021 Influenza injectable quadriv alent IIV4 with preservative 10/08/2019 Influenza injectable quadriv alent preservative free 11/02/2023,12/11/2022,12/20/2021,2019 Influenza, IIV3, injectable 12/20/2021 Influenza, seasonal, injecta ble, preservative free 10/15/2025 Moderna Covid-19 Vaccine 12+ 11/16/2021,03/21/20 21,02/17/2021 Pfizer Covid-19 Vaccine 12+ 10/15/2025,,11/06/2023 Pfizer Covid-19 Vaccine 12+ Bivalent 12/11/2022 Pneumococcal [...] with others, in a hotel, in a care home, living outside on the street, on a [...] the past 12 months, has t he [employer], gas, oil or water [employer] threatened to shut off services in your [...] Sign Reading Time Taken Comments Blood Pressure 120/80 10/15/2025 11:03 AM EST Pulse 89 10/15/2025 11:03 AM EST Temperature 36.4 C (97.6 F) 10/15/2025 11:03 AM EST Respiratory Rate 20 10/15/2025 11:03 AM EST Oxygen Saturation 96% 10/15/2025 11:03 AM EST Inhaled Oxygen Concentration - - Weight 74.4 kg (164 lb) 10/15/2025 11:03 AM EST Height 157.5 cm (5' 2 ) 10/15/2025 11:03 AM EST Body Mass Index 30 10/15/2025 11:03 AM EST Plan of Treatment Upcoming Encounters Date Type Department Care Team (Late st Contact Info) Description 01/26/2026 9:15 AM EDT Office Visit [facility] [address] [place], [place] [phone] Sammy Vyas MD [address] [place], [place] [phone] Health Maintenance Due Date Last Done Comments CT Colonography 1979 Colonoscopy 1979 FIT 1979 Sigmoidoscopy 1979 Family Planning (PISQ) 1994 DTaP/Tdap/Td Vaccines (1 - Tdap) 1998 Hepatitis B Vaccines (1 of 3 - 19+ 3-dose series) 1998 Disability Screening 03/05/2026 03/05/2025 SDOH Screening 03/05/2026 03/05/2025 FOBT 04/09/2026 04/09/2025 Tobacco Screening 04/28/2026 04/28/2025 Diabetes: Hemoglobin A1C 07/14/2026 025, 11/02/2023, 12/29/2020, Additional history exists Alcohol/Substance Use Screening 11/03/2026 11/03/2025 Depression Screening 11/03/2026 11/03/2025, 11/03/20 25 Colorectal Cancer Screening 04/09/2028 FIT DNA/Cologuard 04/09/2028 04/09/2025 Zoster Vaccines (1 of 2) 2029 Lipid Panel 07/14/2030 07/14/2025, 10/06, 12/29/2020 RSV Patients and Patients Aged 60 years or older (1 - 1-dose 75+ series) 2054 Hepatitis A Vaccines Completed 02/28/2022, 07/05/20 21 Pneumococcal Vaccine: Pediatrics (0 to 5 Years) and At-Risk Patients (6 to 49) Years Completed 04/08/2024 HIV Screening Completed 09/23/2025, 11/06, 03/27/2023, Additional history exists COVID-19 Vaccine Completed 10/15/2025, , 11/06/2023, Additional history exists Influenza Vaccine Completed 10/15/2025, , 12/11/2022, Additional history exists HIB Vaccines Aged [...] this topic Meningococcal Vaccine Aged Out No jean claude elan eligible based on patient's age to [...] maintenance agonist therapy, no symptoms (CMS/HCC) (HCC) PHOSPHOLIPASE A2 RECEPTOR (PLA2R) AB PANEL Routine 09/23/2025 11:34 AM EST KAPPA/LAMBDA LIGHT CHAINS FREE WITH RATIO, SERUM Routine 09/23/2025 11:34 AM EST COMPLEMENT COMPONENT C4C Routine 09/23/2025 11:34 AM EST COMPLEMENT COMPONENT C3C Routine 09/23/2025 11:34 AM EST ANCA VASCULITIDES Routine 09/23/2025 11: 34 AM EST PROTEIN, TOTAL AND PROTEIN ELECTROPHORESIS Routine 09/23/2025 11:34 AM EST HIV 1/2 ANTIGEN/ANTIBODY, FOURTH GENERATION W/RFL Routine 09/23/2025 11:34 AM EST HEPATITIS B, C PROFILE Routine 11:34 AM EST DIO SCREEN, IFA, W/REFL TITER AND PATTERN Routine 09/23/2025 11:34 AM EST VITAMIN D,25-OH,TOTAL,IA Routine 09/23/2025 11:34 AM EST PHOSPHATE ( PHOSPHORUS) Routine 09/23/2025 11:34 AM EST BASIC METABOLIC PANEL Routine 09/23/2025 11:34 AM EST PTH, INTACT WITHOUT CALCIUM Routine 09/23/2025 11:34 AM EST CBC Routine 09/23/2025 11:34 AM EST PROTEIN, TOTAL AND PROTEIN ELECTROPHORESIS, RANDOM URINE Routine 09/23/2025 11:18 AM EST URINE PROTEIN, TOTAL, RANDOM (W/O CREATININE) Routine 09/23/2025 11:18 AM EST ALBUMIN, RANDOM URINE W/CREATININE Routine 09/23/2025 11:18 AM EST URINALYSIS WITH REFLEX TO MICROSCOPIC Routine 09/23/2025 11:18 AM EST POCT LIN-14 URINE DRUG SCREEN Routine 08/11/2025 9:30 AM EDT Opioid dependence in remission (CMS/HCC) (HCC) HEMOGLOBIN A1C Routine 07/14/2025 1:55 PM EDT Abscess of skin of abdomen LIPID PANEL, STANDARD Routine 07/14/2025 1:55 PM EDT LAB COLOGUARD COLON CANCER SCREEN Routine 04/09/2025 10:15 AM EDT Screening for colon cancer from Last 3 Months or Most Recently Relevant to Health Maintenance Results * (ABNORMAL) POCT LIN-14 Urine Drug Screen (11/03/2025 9:09 AM EST) Only the most recent of2 resultswithin the time period is included. Amphetamine Screen, Urine Negative Negative Barbiturate Screen, [...] OF CARE TEST ENTER/EDIT ORDERABLES Final Result * (ABNORMAL) Hepatitis B, C Profile (09/23/2025 11:34 AM EST) ~Hepatitis B Surface Antibody REACTIVE Nonreactive [facility] Comment:REACTIVE: > 11.99 mI U/mL Hepatitis B Core Antibody Reactive Nonreactive [facility] Comment:Presumptive evidence of anti-HBc. Hepatitis C Antibody Reactive(A) Nonreactive [facility] Comment:Presumptive evidence of antibodies to HCV. Hepatitis B Surface Ag Negative Negative [facility] 09/23/2025 11:3 4 AM EST 09/23/2025 11:34 AM EST us Generic External Data Provider LAB BLOOD ORDERAB LES Final Result [facility] [address] [place] [phone] * ANCA Vasculitides (09/23/2025 11:34 AM EST) Myeloperoxidase Antibody <1.0 [facility] Comment:Value Interpretation ----- <1.0 No Antibody Detected > or = 1.0 Antibody DetectedAutoantibodies to myeloperoxidase (MPO) are commonlyassociated with the following small-vesselvasculitides: microscopic polyangiitis,polyarteritis nodosa, Churg-Lizzie syndrome,necrotizing and crescentic glomerulonephritis andoccasionally granulomatosis with polyangiitis(GPA, Richardson's). The perinuclear IFA pattern,(p-ANCA) is based largely on autoantibody tomyeloperoxidase which serves as the primary antigen.These autoantibodies are present in active disease. Proteinase-3 Antibody <1.0 [facility] Comment:Value Interpretation ----- <1.0 No Antibody Detected > or = 1.0 Antibody DetectedAutoantibodies to proteinase-3 (RI-3) are accepted ascharacteristic for granulomatosis with polyangiitis(GPA, Richardson's), and are detectable in 95% of thehistologically proven cases. The cytoplasmic IFApattern, (c-ANCA), is based largely on autoantibody toPR-3 which serves as the primary antigen.These autoantibodies are present in active disease.THIS TEST WAS PERFORMED AT:[email or web address] [place] [id number] PABLO MD 09/23/2025 11:3 4 AM EST 09/23/2025 11:34 AM EST us Generic External Data Provider LAB BLOOD ORDERAB LES Final Result [facility] [address] [place] [phone] * (ABNORMAL) Vitamin D, 25-Hydroxy, Total, Immunoassay (09/23/2025 11:34 AM EST) Vitamin D 25-OH Total 13.3(L) >30 ng/mL [facility] Comment: Health Based Reference Values*< 20 ng/mL [id number] ng/mL Insufficient> 30 ng/mL Sufficient*Myriam GOOD. N Engl J Med. 2007;357:266-280There is no well-established upper level of normal vitamin Dlevels. Some laboratories use 50 ng/mL as an upper limit ofnormal. However, toxicity is patient-dependent and may occurat any level. Careful correlation with the patient'spresentation is necessary and, if there is concern forvitamin D toxicity, treatment should be consideredirrespective of the serum level.Care must be taken in interpreting Vitamin D results fromdifferent laboratories and methodologies. Published datademonstrated that results from patients undergoinghemodialysis may show a negative bias when tested withvarious automated 25-OH vitamin D assays when compared toLC-MS/MS.When testing samples from patients whose predominant form ofVitamin D is Vitamin D2, such as patients receiving VitaminD2 supplementation, results that are subtherapeutic shouldbe confirmed with another method such as LC-MS/MS. 09/23/2025 11:3 4 AM EST 09/23/2025 11:34 AM EST us Generic External Data Provider LAB BLOOD ORDERAB LES Final Result [facility] [address] [place] [phone] * Phospholipase A2 Receptor (PLA2R) Antibody Panel (09/23/2025 11:34 AM EST) Phospholipase A2 Receptor (PLA2R) Ab, PETE <4 RU/mL [facility] Comment:Reference Range: <14 : NEGATIVE 14-19: BORDERLINE >19: POSITIVE Phospholipase A2 Receptor (PLA2R) Ab, IFA NEGATIVE NEGATIVE [facility] Comment:THIS TEST WAS PERFOR MED AT:[employer] [id number] ALYSSA RIOS [id number] MAYEN MD,PHD,WILMAR 09/23/2025 11:3 4 AM EST 09/23/2025 11:34 AM EST Generic External Data Provider LAB BLOOD ORDERAB LES Final Result Performing Organization Address [facility] Co de Phone Number [facility] [address] [place] [phone] * Di Giorgio/Lambda Light Chains, Free with Ratio (09/23/2025 11:34 AM EST) Di Giorgio Light Chain, Free, Serum 272 176 - 443 mg/dL [facility] Lambda Light Chain, Free, Serum 151 91 - 240 mg/dL [facility] Di Giorgio/Lambda Light Chains Free With Ratio, Serum 1.80 1.29 - 2.55 [facility] Comment:This assay provides a measurement of the total kappa and thetotal lambda light chains, ie., the amount of free(unattached) light chain in circulation and the amount oflight chain linked to heavy chain in intact immunoglobulinmolecules. Assays for serum free light chain only, kappa andlambda with ratio, may be more useful in evaluating andmanaging light chain gammopathies including those associatedwith myeloma, lymphoproliferative disorders, andamyloidosis.THIS TEST WAS PERFORMED AT:[employer] [id number] [place] [address]WHUEPCURT MAYEN MD,PHD,WILMAR 09/23/2025 11:3 4 AM EST 09/23/2025 11:34 AM EST us Generic External Data Provider LAB BLOOD ORDERAB LES Final Result Performing Organization Address [facility]/ZIP Co de Phone Number [facility] [address] [place] [phone] * HIV-1/2 Antigen and Antibodies, Fourth Generation, with Reflexes (09/23/2025 11:34 AM EST) HIV AB/AG Nonreactive Nonreactive [facility] Comment:HIV-1 p24 Ag and/or HIV-1/HIV-2 Ab not detected.A test result that is nonreactive does not exclude thepossibility of exposure to or infection with HIV-1 and/orHIV-2. Nonreactive results in this assay for individualswith prior exposure to HIV-1 and/or HIV-2 may be due toantigen and antibody levels that are below the limit ofdetection of this assay.The [employer] HIV Ag/Ab Combo assay result andsupplemental assay results should be interpreted inconjunction with the patient's clinical presentation,history and other laboratory results. If the results areinconsistent with clinical evidence, additional testing issuggested to confirm the result. 09/23/2025 11:3 4 AM EST 09/23/2025 11:34 AM EST us Generic External Data Provider LAB BLOOD ORDERAB LES Final Result [facility] [address] [place] [phone] * (ABNORMAL) CBC (09/23/2025 11:34 AM EST) White Blood Count 8.2 4.8 - 10.8 X10*3/uL [facility] Red Blood Count 4.69 4.60 - 5.80 X10*6/uL [facility] Hemoglobin 13.9(L) 14.0 - 18.0 g/dl [facility] Hematocrit 43.5 42.0 - 52.0 % [facility] Mean Corpuscular Volume 92.8 80.0 - 98.0 fL [facility] Mean Corpuscular Hemoglobin 29.6 27.0 - 33.0 pg [facility] Mean Corpuscular HGB Conc 32.0 31.0 - 36.0 g/dl [facility] Red Cell Distribution Width 13.1 11.0 - 16.0 % [facility] Platelet Count 176 160 - 400 X10*3/uL [facility] Mean Platelet Volume 10.8 9.4 - 12.4 fL [facility] NRBC Pct Auto 0.0 0.0 - 0.2 /100WBC [facility] NRBC Abs Auto 0.000 0.0 - 0.012 X10*3/uL [facility] 09/23/2025 11:3 4 AM EST 09/23/2025 11:34 AM EST us Generic External Data Provider LAB BLOOD ORDERAB LES Final Result Performing Organization Address [facility] Co de Phone Number [facility] [address] [place] [phone] * Complement Component C3c (09/23/2025 11:34 AM EST) Complement C3 157 82 - 185 mg/dL [facility] Comment:THIS TEST WAS PERFOR MED AT:[id number] [place] [address]KFRAEDEJAH PABLO MD 09/23/2025 11:3 4 AM EST 09/23/2025 11:34 AM EST us Generic External Data Provider LAB BLOOD ORDERAB LES Final Result Performing Organization Address [facility] de Phone Number [facility] [address] [place] [phone] * Complement Component C4c (09/23/2025 11:34 AM EST) Complement C4 24 15 - 53 mg/dL [facility] Comment:THIS TEST WAS PERFOR MED AT:[address] [place] [address]PFFEXWALLY PABLO MD 09/23/2025 11:3 4 AM EST 09/23/2025 11:34 AM EST us Generic External Data Provider LAB BLOOD ORDERAB LES Final Result Performing Organization Address [facility] Co de Phone Number [facility] [address] [place] [phone] * DIO Screen,IFA, with Reflex to Titer and Pattern (09/23/2025 11:34 AM EST) Pathologist [facility] [place] Anti Nuclear Antibody Screen NEGATIVE NEGATIVE [facility] Comment:DIO IFA is a first l ine screen for detecting thepresence of up to approximately 150 autoantibodies invarious autoimmune diseases. A negative DIO IFA resultsuggests an DIO-associated autoimmune disease is notpresent at this time, but is not definitive. If thereis high clinical suspicion for Sjogren's syndrome,testing for anti-SS-A/Ro antibody should be considered.Anti-Jennifer-1 antibody should be considered for clinicallysuspected inflammatory myopathies.AC-0: NegativeInternational Consensus on DIO Patterns(https://doi.org/10.1515/lsir-7866-8192)For additional information, please refer tohttp://education.[employer]/faq/IMQ783(This link is being provided for informational/educational purposes only.)THIS TEST WAS PERFORMED AT:[address] [place] [phone] PABLO MD DIO Titer TNP [facility] DIO Pattern TNP [facility] DIO Titer 2 [facility] DIO Pattern 2 [facility] 3 [facility] D[facility] [facility] 09/23/2025 11:3 4 AM EST 09/23/2025 11:34 AM EST us Generic External Data Provider LAB BLOOD ORDERAB LES Final Result [facility] [address] [place] [phone] * Protein, Total and Protein??Electrophoresis (09/23/2025 11:34 AM EST) Prot Elec - Total Protein 7.0 6.1 - 8.1 g/dL [facility] Prot Elec - Albumin 4.1 3.8 - 4.8 g/dL [facility] Prot Elec - Alpha1 0.3 0.2 - 0.3 g/dL [facility] Prot Elec - Alpha2 0.8 0.5 - 0.9 g/dL [facility] Prot Elec - Beta 1 0.4 0.4 - 0.6 g/dL [facility] Prot Elec - Beta 2 0.4 0.2 - 0.5 g/dL [facility] Prot Elec - Gamma 1.1 0.8 - 1.7 g/dL [facility] PES - Abn Protein Band 1 TNP [facility] PES-Abn Protein Band 2 [facility] PES-Abn Protein Band 3 [facility] Prot Elec - Interpretation SEE NOTE [facility] Comment:Normal Serum Protein Electrophoresis Pattern.No abnormal protein bands (M-protein) detected.THIS TEST WAS PERFORMED AT:[facility] [place] [id number] PABLO MD 09/23/2025 11:3 4 AM EST 09/23/2025 11:34 AM EST Generic External Data Provider LAB BLOOD ORDERAB LES Final Result Performing Organization Address [facility] Co de Phone Number [facility] [address] [place] [phone] * Phosphate (As Phosphorus) (09/23/2025 11:34 AM EST) Phosphorus 2.9 2.7 - 4.5 mg/dL [facility] 09/23/2025 11:3 4 AM EST 09/23/2025 11:34 AM EST Generic External Data Provider LAB BLOOD ORDERAB LES Final Result Performing Organization Address [facility] Co de Phone Number [facility] [address] [place] [phone] * (ABNORMAL) PTH, Intact Without Calcium (09/23/2025 11:34 AM EST) Parathyroid Hormone, Intact 149.5(H) 8.7 - 77.1 pg/mL [facility] 09/23/2025 11:3 4 AM EST 09/23/2025 11:34 AM EST Generic External Data Provider LAB BLOOD ORDERAB LES Final Result Performing Organization Address [facility] Co de Phone Number [facility] [address] [place] [phone] * (ABNORMAL) Basic Metabolic Panel (09/23/2025 11:34 AM EST) Sodium 140 135 - 145 mmol/L [facility] Potassium 4.1 3.3 - 5.1 mmol/L [facility] Chloride 109(H) 96 - 108 mmol/L [facility] Carbon Dioxide 23 22 - 29 mmol/L [facility] Anion Gap 12 12 - 20 [facility] Urea Nitrogen (BUN) 17(H) 9 - 16 mg/dL [facility] Creatinine, Serum 1.07 0.5 - 1.4 mg/dL [facility] Estimated Glomerular Filt Rate >60 [facility] Comment:Chronic Kidney Disea se: Estimated GFR < 60 mL/min/[id number] Kidney Disease: Estimated GFR < 15 mL/min/1.73m2 Glucose 108 60 - 115 mg/dL [facility] Calcium 8.9 8.4 - 10.2 mg/dL [facility] 09/23/2025 11:3 4 AM EST 09/23/2025 11:34 AM EST Generic External Data Provider LAB BLOOD ORDERAB LES Final Result Performing Organization Address [facility] Co de Phone Number [facility] [address] [place] [phone] * Urinalysis with Reflex to Microscopic (09/23/2025 11:18 AM EST) Color Urine Yellow [facility] Appearance Urine Clear [facility] PH 6.0 5.0 - 9.0 [facility] Glucose Urine UA Negative Negative mg/dL [facility] Urine Blood Negative Negative [facility] Specific Aubrey - Urine 1.025 1.005 - 1.025 [facility] Urine Protein Negative Neg-Trace mg/dL [facility] Urine Ketones Negative Negative mg/dL [facility] Nitrite Urine Negative Negative [facility] Leukocyte Esterase Urine Negative Negative [facility] 09/23/2025 11:1 8 AM EST 09/23/2025 12:00 PM EST us Generic External Data Provider LAB URINE ORDERAB LES Final Result Performing Organization Address City/State/[facility] Co de Phone Number [facility] [address] [place] [phone] * Protein Electrophoresis and Total Protein, Random Urine (09/23/2025 11:18 AM EST) PEU-Random Urine Creatinine 155 20 - 320 mg/dL [facility] PEU-Random Urine Protein 18 5 - 25 mg/dL [facility] PEU-Calvin. Prot/Creat Ratio 116 25 - 148 mg/g creat [facility] PEU-Random Urine Albumin 100 % [facility] PEU-Random Urine A1 Globulin 0 % [facility] PEU-Random Urine A2 Globulin 0 % [facility] PEU-Random Urine Beta Globulin 0 % [facility] PEU-Random Ur. Gamma Globulin 0 % [facility] PEU Ran-Abn Protein Band 1 [facility] PEU Ran-Abn Protein Band 2 [facility] PEU Ran-Abn Protein Band 3 [facility] PEU-Random Urine Interpret. SEE NOTE [facility] Comment:Normal PatternTHIS T EST WAS PERFORMED AT:[facility] [address] [id number] PABLO MD Protein/Creatini ne Ratio 0.116 0.025 - 0.148 [facility] Comment:Result Units: mg/mg creat 09/23/2025 11:1 8 AM EST 09/23/2025 12:00 PM EST us Generic External Data Provider LAB URINE ORDERAB LES Final Result Performing Organization Address [facility] Co de Phone Number [facility] [address] [place] [phone] * Albumin, Random Urine W/Creatinine (09/23/2025 11:18 AM EST) Creatinine, Urine 167.87 mg/dL [facility] Microalbumin Urine 7.0 mg/L [facility] Microalbum Creatinine Ratio Ur 4.1 <30 ug/mg cr [facility] Comment:Albumin/Creatinine R atio Reference Ranges: Normal: < 30 ug/mg creatinine Microalbuminuria: 30 - 300 ug/mg creatinineClinical Albuminuria: > 300 ug/mg creatinine 09/23/2025 11:1 8 AM EST 09/23/2025 12:00 PM EST us Generic External Data Provider LAB URINE ORDERAB LES Final Result Performing Organization Address [facility] Co de Phone Number [facility] [address] [place] [phone] * Urine Protein, Total, Random without Creatinine (09/23/2025 11:18 AM EST) Protein, Total, Random Urine <7 <12 mg/dL [facility] 09/23/2025 11:1 8 AM EST 09/23/2025 12:00 PM EST us Generic External Data Provider LAB URINE ORDERAB LES Final Result Performing Organization Address [facility] Co de Phone Number [facility] [address] [place] [phone] * Hemoglobin A1c (07/14/2025 1:55 PM EDT) Hemoglobin A1c 6.0 <6.0 % [facility] Comment:Hemoglobin A1C Refer ence Range Adults: 4.8 - 6.0 % Non diabetic: < 6.0 % Goal: < 7.0 %Additional Action Suggested: > 8.0 %Note: Hemoglobin A1c results are invalid for patients with abnormal amounts of HbF. Blood transfusions may impact the HbA1c concentration in the patient sample. Estimated Average Glucose 126 mg/dL [facility] Comment:eAG = Estimated ave rage glucose which is %A1C expressed asaverage glucose, using the formula of the L0B-XkigmbfJjuhtyd Glucose study (ADAG), Diabetes Care, Vol.31,#8,Jun. 2007 Blood Venous blood specimen / Unknown 07/14/2025 1:55 PM EDT 07/14/2025 4:09 PM EDT us Patel Shafer MD LAB BLOOD ORDERABLES Final Resul t [facility] [address] [place] [phone] * (ABNORMAL) Lipid Panel, Standard (07/14/2025 1:55 PM EDT) Triglycerides 161(H) <150 mg/dL [facility] Comment:Desirable Triglyceri de: less than 150 mg/dLBorderline High Triglyceride 150-199 mg/dLHigh Triglyceride: 200-499 mg/dLVery High Triglyceride: greater than or equal to 5OO mg/dL Cholesterol 245(H) <200 mg/dL [facility] Comment:Desirable Cholestero l: less than 200 mg/dLBorderline High Cholesterol: 200-239 mg/dLHigh Cholesterol: greater than 239 mg/dL LDL Cholesterol Calculated 168(H) <100 mg/dL [facility] Comment:Desirable LDL: less than 100 mg/dLNear Optimal/Above Optimal LDL: 110- 129 mg/dLBorderline High LDL: 130-159 mg/dLHigh LDL: 160-189 mg/dLVery High LDL: greater than or equal to 190 mg/dL HDL Cholesterol 45 >40 mg/dL [facility] Comment:Desirable HDL: great er than 40 mg/dL Note: This HDL assay may give artificially low results in patients with liver disease. 07/14/2025 1:55 PM EDT 07/14/2025 4:12 PM EDT us Generic External Data Provider LAB BLOOD ORDERAB LES Final Result [facility] [address] [place] [phone] * Cologuard?? colon cancer screening (04/09/2025 10:15 AM EDT) Cologuard Result Negative Negative 04/14/20 12:43 PM EDT [facility] (CLIA #:[id number]) Comment: The Cologuard (TM) test was performed [...] cancer. Following a negative Cologuard result, the [place] [employer] and U.S. Multi-Society Task Force screening guidelines recommend a Cologuard re-screening interval of 3 years. References: [place] [employer] Guideline for Colorectal Cancer Screening: https://www.cancer.org/cancer/mnboe-xpvslk-ultvtz/nodvktjwy-xbxrsuniu-akqhasf/ac s-rec ommendations.html.; Reid EPPERSON, Rosalva DUARTE, Rita FloresK, Colorectal Cancer Screening: Recommendations for Physicians and Patients from the U.S. Multi-Society Task Force on Colorectal Cancer Screening , Am J Gastroenterology 2017; 112:5253-6669. TEST DESCRIPTION: Composite algorithmic analysis of stool [...] screened with both Cologuard and colonoscopy. (Laisha Saravia et al, N Engl J Med 2014;370(14):6929-7114.) Cologuard may produce a false negative or false positive result (no colorectal cancer or precancerous polyp present at colonoscopy follow up). A negative Cologuard test result does not guarantee the absence of CRC or advanced adenoma (pre-cancer). The current Cologuard screening interval is every 3 years. ([place] [employer] and U.S. Multi-Society Task Force). Cologuard performance data in a 10,000 patient pivotal study using colonoscopy as the reference method can be accessed at the following location: www.[employer].Instant Opinion/results. Additional description of the Cologuard test process, warnings and precautions can be found at www.[employer].Instant Opinion. Stool specimen (specimen) 04/09/2025 10:15 AM EDT 04/10/2025 12:59 PM EDT Jahaira Bui MD LAB MOLECULAR DIAGNOS TICS ORDERABLES Final Result [facility] (CLIA #:[id number]) [address] [place] [address], from Last 3 Months or Most Recently Relevant to Health Maintenance Insurance STANDARD Care Teams Lock Operator Relationship Specialty Start Date End Date Jahaira Bailey MD [address] [place] [phone] PCP - General Family Medicine 10/08/19
== END 2025-11-03 16:58 | disposition home or self-care (01) ==
LOC: HO.HKA 15:23
PROVIDERS: PCP Internal Medicine; Visit Provider Internal Medicine Critical Care Medicine
DX: I10 Essential (primary) hypertension (principal); N20.0 Calculus of kidney; N18.31 Chronic kidney disease, stage 3a
CPT/HCPCS: 99214

== ENCOUNTER → 2025-11-03 15:23 | Outpatient (BNVA) | payer MEDICAID, SELFPAY | PROVIDERS: PCP Internal Medicine; Visit Provider Internal Medicine Critical Care Medicine | DX: I12.9 Hypertensive chronic kidney disease with stage 1 through stage 4 chronic kidney disease, or unspecified chronic kidney disease (principal); N18.31 Chronic kidney disease, stage 3a; N20.0 Calculus of kidney; F17.210 Nicotine dependence, cigarettes, uncomplicated; Z71.6 Tobacco abuse counseling | CPT/HCPCS: 99212 ==